=== PATIENT | female | born 1950 | race Caucasian/White ===

== ENCOUNTER 2020-04-11 15:22 | Outpatient (REF) | payer OTHER, SELFPAY ==
[2020-04-11 16:55] LABS: SARS COV2 PCR INHOUSE NEGATIVE (Negative)
== END 2020-04-11 15:23 | disposition home or self-care (01) ==
LOC: HO.LAB 15:22
PROVIDERS: PCP Internal Medicine; Visit Provider Internal Medicine
DX: Z20.828 Contact with and (suspected) exposure to other viral communicable diseases (principal)
CPT/HCPCS: 87635

== ENCOUNTER 2020-04-14 07:56 | Outpatient (REF) | payer OTHER, SELFPAY ==
[2020-04-14 08:25] LABS: COVID-19 Test Negative (Negative)
== END 2020-04-14 07:57 | disposition home or self-care (01) ==
LOC: HO.LAB 07:56
PROVIDERS: Visit Provider Internal Medicine
DX: Z20.828 Contact with and (suspected) exposure to other viral communicable diseases (principal)
CPT/HCPCS: 87635

== ENCOUNTER 2020-05-15 06:41 | Outpatient (REF) | payer OTHER, SELFPAY ==
[2020-05-15 07:09] LABS: COVID-19 Test Positive (Negative)
== END 2020-05-15 06:42 | disposition home or self-care (01) ==
LOC: HO.EMPCOV 06:41
PROVIDERS: Visit Provider Internal Medicine
DX: Z20.828 Contact with and (suspected) exposure to other viral communicable diseases (principal)
CPT/HCPCS: 87635; C9803

== ENCOUNTER 2020-05-23 17:56 | Inpatient (IN) | payer OTHER, SELFPAY ==
[2020-05-23 18:00] VITALS: PULSE 74; RESP 16; TEMP 37.2; O2SAT 90; BMI 31.0
--- NOTE | 2020-05-23 19:00 | ED_ITS ---
HPI - General Adult General Chief complaint: Upper Respiratory Symptoms Stated complaint: SOB,WEAKNESS,COVID + Time Seen by Provider: 05/23/20 18:29 History of Present Illness HPI narrative: 69-year-old female who presents to the emergency department for evaluation of increasing chest pain and shortness of breath. The patient was diagnosed with COVID 19 on May 15, 2020. 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 She states that 1 day before her test she got sick with fever and chills. Since being COVID positive she has stay home and isolated herself. She states the last 3-4 days her symptoms have gotten worse. She states that she has had fever, chills and a worsening cough which is nonproductive. She states she is feeling incredibly weak and fatigued. She has lost her appetite. She has developed left-sided chest pain which desc ribed as sharp pain which is worse with breathing. She has also developed increased shortness of breath increased dyspnea on exertion. She did see her doctor 3 days prior and was started on Zithromax. She states that after her 1st dose she did have 1 day of diarrhea but then this resolved. The patient was concerned that her symptoms were getting worse so she came to the emergency department for evaluation. Related Data Home Medications Medication Instructions Recorded Confirmed amlodipine 1 tab PO DAILY 05/23/20 05/23/20 azithromycin 1 dose pk PO DIRECTED 05/23/20 05/23/20 hydrochlorothiazide 1 tab PO DAILY 05/23/20 05/23/20 lisinopril 1 tab PO DAILY 05/23/20 05/23/20 Allergies Allergy/AdvReac Type Severity Reaction Status Date / Time No Known Allergies Allergy Verified 05/23/20 18:03 Review of Systems Review of Systems: Yes all other systems are reviewed and are negative Constitutional: Constitutional: Reports as per HPI Eyes: Eyes: Reports as per HPI ENT: Reports as per HPI Cardiovascular: Cardiovascular: Reports as per HPI Respiratory: Respiratory: Reports as per HPI Gastrointestinal: Gastrointestinal: Reports as per HPI Genitourinary: Genitourinary: Reports as per HPI Musculoskeletal: Musculoskeletal: Reports as per HPI Integumentary/Breasts: Skin/Breast: Reports as per HPI Neurologic: Reports as per HPI and Reports Abnormal speech present Psychiatric: Psychiatric: Reports as per HPI Allergic/Immunologic: Allergic/Immunologic: Reports as per HPI [facility] Past Medical History [facility] Narrative: Patient has a history of hypertension only. She denies tobacc o, alcohol or drug use. Medical History HTN (hypertension) Social History Social History Alcohol intake: never Smoked in Last 30 Days: No Use of substances other than those prescribed or required for medical reasons: No Advance Directives: No Advance Directives Information Provided: Yes Physical Exam Vital Signs: Vital Signs: Last Vital Signs Temp 98.7 F 05/24/20 00:03 Pulse 74 05/24/20 00:03 Resp 16 05/24/20 00:03 BP 110/75 05/24/20 00:03 Pulse Ox 96 05/23/20 21:55 Body Mass Index 31.0 Const: General: cooperative, no acute distress, alert and awake Nutritional Appearance: overweight Orientation/consciousness: oriented to person and oriented to place Limitations: no limitations HENMT: Head: Yes normal to inspection, Yes normocephalic and Yes atraumatic Ears: external ears normal General nose exam: Normal external nose present Face and sinus: Yes normal facial exam Mouth: Normal oral and palatal mucosa present Throat: Yes posterior oropharynx normal Eyes: General: appearance normal, both eyes and all related structures Periorbital: periorbital findings normal Eyelids: Yes eyelids normal Conjunctivae: conjunctivae normal Sclerae: sclerae normal Corneas: corneas normal Pupils: Equal, round and reactive pupils present Direct Ophth almoscopy: normal light reflex Neck: Neck: Yes normal visual inspection and Yes supple Lymphatic: no lymphadenopathy noted Chest: Chest palpation & inspection: normal inspection of the chest and normal palpation of entire chest wall Resp: Effort & Inspection: normal respiratory effort, abnormal respiratory pattern, no audible wheezes and no respiratory distress Auscultation: clear to auscultation bilaterally, crackles (Right and left base), rales (Diffuse), no rhonchi and no wheezes Cardio: Rate: regular rate Rhythm: regular rhythm Heart sounds: S1 normal heart sound present, S2 normal heart sound present and no murmurs GI: Inspection: No distended Palpation (GI): Soft to palpation, nontender, no guarding and No hepatosplenomegaly present Auscultation: normal bowel sounds : General: Yes no CVA tenderness Back/Spine/Pelvis: Back: no CVA tenderness Skin: General skin exam: no rashes or lesions noted Lesions: no lesions Rashes: no rashes Wounds: no wounds Neuro: General: oriented to person and oriented to place Cranial nerves: Yes CN's II-XII intact bilaterally and Yes Equal, round and reactive pupils present Cognition (Neuro): normal cognition Speech: Abnormal speech present Motor exam (neuro): 5/5 motor strength present throughout Extrem: General: Yes normal to inspection, Yes full ROM, Yes no pedal edema and Yes no calf tenderness Psych: Appearance: grossly normal Mental Status: mental status grossly normal Speech and movement: Clear speech present Affect: normal affect Thought process: Normal thought process present Course Course Course Narrative: 69-year-old female with a history of hypertension who was diagnosed with COVID-19 on May 15, 2020 who presents to the emergency department with worsening symptoms including fever, chills, shortness of breath, dyspnea on exertion and left-sided pleuritic chest pain. On presentation the patient's temperature was 99? F with a respiratory rate of 16 and O2 saturation of 88% on room air. The patient was placed on 4 L of oxygen via nasal cannula and her O2 saturation came up to 96%. The patient's hypoxia is concerning. I did order a COVID-19 workup on this patient. 2327: The patient's laboratory evaluation revealed a normal CBC. The patient did have an elevated D-dimer, elevated ferritin and elevated CRP. Patient's procalcitonin was normal. CT scan and pulmonary embolism protocol revealed no filling defect but patient does have bilateral interstitial infiltrates consistent with an infectious process consistent with the COVID pneumonia. I will present the patient to the covering hospitalist for admission for further management of her COVID pneumonia and her hypoxia. 0035 : I did discuss the patient's presentation with the covering hospitalist. He agreed to admit the patient to the medical floor. after our discussion, I ordered the following: Respiratory panel, Solu-Medrol 40 mg IV, albuterol inhaler 4 puffs, Rocephin 1 g IV, doxycycline 100 mg IV. Medical Decision Making Lab Data Result diagrams: 05/23/20 19:16 05/23/20 19:52 Labs: Lab Results 05/23/20 05/23/20 05/23/20 Range/Units 19:16 19:16 19:16 WBC 6.1 (4.8-10.8) X10*3/uL RBC 4.45 (4.20-5.50) X10*6/uL Hgb 13.2 (12.0-16.0) g/dl Hct 39.1 (37-47) % MCV 87.9 (80-98) fL MCH 29.7 (27.0-33.0) pg MCHC 33.8 (31.0-35.0) g/dl RDW 13.3 (11.0-16.0) % Plt Count 231 (160-400) X10*3/uL MPV 9.9 (9.4-12.3) fL Immature Gran % (Auto) 0.3 (0.0-0.4) % Neut % (Auto) 75.5 H (45-73) % Lymph % (Auto) 16.2 L (20-40) % Edmonson % (Auto) 7.8 (2-11) % Eos % (Auto) 0.0 (0-4) % Baso % (Auto) 0.2 (0-2) % Lymph # (Auto) 1.0 L (1.2-4.9) X10*3/uL Edmonson # (Auto) 0.5 (0.1-1.2) X10*3/uL Eos # (Auto) 0.0 (0.0-0.4) X10*3/uL Baso # (Auto) 0.0 (0.0-0.2) X10*3/uL Abs Immat Gran (auto) 0.02 (0.00-0.03) X10*3/uL Absolute Neuts (auto) 4.6 (2.0-8.3) X10*3/uL Absolute Nucleated RBC 0.000 (0.0-0.012) X10*3/uL Nucleated RBC % (auto) 0.0 (0.0-0.2) /100WBC D-Dimer 477 NG/ML Sodium Cancelled Potassium Cancelled Chloride Cancelled Carbon Dioxide Cancelled Anion Gap Cancelled BUN Cancelled Creatinine Cancelled Estim Creat Clear Calc Cancelled Estimated GFR Cancelled Random Glucose Cancelled Calcium Cancelled Phosphorus Magnesium Ferritin Cancelled Total Bilirubin Cancelled Direct Bilirubin Cancelled AST Cancelled ALT Cancelled Alkaline Phosphatase Cancelled Lactate Dehydrogenase Total Creatine Kinase Troponin I High Sens (<3.5-17.0) ng/L C-Reactive Protein Total Protein Cancelled Albumin Cancelled Lipase Cancelled Procalcitonin 05/23/20 05/23/20 05/23/20 Range/Units 19:16 19:16 19:16 WBC (4.8-10.8) X10*3/uL RBC (4.20-5.50) X10*6/uL Hgb (12.0-16.0) g/dl Hct (37-47) % MCV (80-98) fL MCH (27.0-33.0) pg MCHC (31.0-35.0) g/dl RDW (11.0-16.0) % Plt Count (160-400) X10*3/uL MPV (9.4-12.3) fL Immature Gran % (Auto) (0.0-0.4) % Neut % (Auto) (45-73) % Lymph % (Auto) (20-40) % Edmonson % (Auto) (2-11) % Eos % (Auto) (0-4) % Baso % (Auto) (0-2) % Lymph # (Auto) (1.2-4.9) X10*3/uL Edmonson # (Auto) (0.1-1.2) X10*3/uL Eos # (Auto) (0.0-0.4) X10*3/uL Baso # (Auto) (0.0-0.2) X10*3/uL Abs Immat Gran (auto) (0.00-0.03) X10*3/uL Absolute Neuts (auto) (2.0-8.3) X10*3/uL Absolute Nucleated RBC (0.0-0.012) X10*3/uL Nucleated RBC % (auto) (0.0-0.2) /100WBC D-Dimer NG/ML Sodium Potassium Chloride Carbon Dioxide Anion Gap BUN Creatinine Estim Creat Clear Calc Estimated GFR Random Glucose Calcium Phosphorus Cancelled Magnesium Cancelled Ferritin Total Bilirubin Direct Bilirubin AST ALT Alkaline Phosphatase Lactate Dehydrogenase Cancelled Total Creatine Kinase Cancelled Troponin I High Sens 5.9 (<3.5-17.0) ng/L C-Reactive Protein Cancelled Total Protein Albumin Lipase Procalcitonin Cancelled 05/23/20 05/23/20 Range/Units 19:52 19:52 WBC (4.8-10.8) X10*3/uL RBC (4.20-5.50) X10*6/uL Hgb (12.0-16.0) g/dl Hct (37-47) % MCV (80-98) fL MCH (27.0-33.0) pg MCHC (31.0-35.0) g/dl RDW (11.0-16.0) % Plt Count (160-400) X10*3/uL MPV (9.4-12.3) fL Immature Gran % (Auto) (0.0-0.4) % Neut % (Auto) (45-73) % Lymph % (Auto) (20-40) % Edmonson % (Auto) (2-11) % Eos % (Auto) (0-4) % Baso % (Auto) (0-2) % Lymph # (Auto) (1.2-4.9) X10*3/uL Edmonson # (Auto) (0.1-1.2) X10*3/uL Eos # (Auto) (0.0-0.4) X10*3/uL Baso # (Auto) (0.0-0.2) X10*3/uL Abs Immat Gran (auto) (0.00-0.03) X10*3/uL Absolute Neuts (auto) (2.0-8.3) X10*3/uL Absolute Nucleated RBC (0.0-0.012) X10*3/uL Nucleated RBC % (auto) (0.0-0.2) /100WBC D-Dimer NG/ML Sodium 133 L Potassium 3.9 Chloride 97 Carbon Dioxide 23 Anion Gap 17 BUN 16 Creatinine 1.03 Estim Creat Clear Calc 64.2 Estimated GFR 53 Random Glucose 107 Calcium 8.4 Phosphorus 2.7 Magnesium 1.9 Ferritin 403 H Total Bilirubin 0.6 Direct Bilirubin 0.2 AST 29 ALT 19 Alkaline Phosphatase 64 Lactate Dehydrogenase 272 H Total Creatine Kinase 76 Troponin I High Sens (<3.5-17.0) ng/L C-Reactive Protein 2.51 H Total Protein 6.6 Albumin 3.7 Lipase Procalcitonin 0.11 Discharge Plan Discharge Clinical Impression: Pneumonia due to COVID-19 virus, Hypoxia Patient Disposition: Admitted As Inpatient Prescriptions: No Action azithromycin 250 mg tablet 1 dose pk PO DIRECTED RF: 0 amlodipine 5 mg tablet 1 tab PO DAILY RF: 0 lisinopril 5 mg tablet 1 tab PO DAILY RF: 0 hydrochlorothiazide 12.5 mg tablet 1 tab PO DAILY RF: 0
[2020-05-23 19:23] VITALS: O2SAT 96
[2020-05-23 19:25] LABS: Basophils Percent Auto 0.2 % (0-2); Hematocrit 39.1 % (37-47); Hemoglobin 13.2 g/dl (12.0-16.0); Imm Gran Abs Auto 0.02 X10*3/uL (0.00-0.03); Imm Gran Pct Auto 0.3 % (0.0-0.4); Lymphocytes Percent Auto 16.2 % (20-40); MANUAL DIFF FLAG NO; Mean Corpuscular HGB Conc 33.8 g/dl (31.0-35.0); Mean Corpuscular Hemoglobin 29.7 pg (27.0-33.0); Mean Corpuscular Volume 87.9 fL (80-98); Mean Platelet Volume 9.9 fL (9.4-12.3); Monocytes Absolute Auto 0.5 X10*3/uL (0.1-1.2); Monocytes Percent Auto 7.8 % (2-11); Neutrophils Absolute Auto 4.6 X10*3/uL (2.0-8.3); Neutrophils Percent Auto 75.5 % (45-73); Platelet Count 231 X10*3/uL (160-400); Red Blood Count 4.45 X10*6/uL (4.20-5.50); Red Cell Distribution Width 13.3 % (11.0-16.0); White Blood Count 6.1 X10*3/uL (4.8-10.8)
[2020-05-23 19:33] LABS: D Dimer 477 NG/ML
[2020-05-23 19:49] LABS: Troponin-I High Sensitivity 5.9 ng/L (<3.5-17.0)
[2020-05-23 19:54] VITALS: BP 114/57; PULSE 55; RESP 16; TEMP 37.4; O2SAT 96
[2020-05-23 20:00] VITALS: BP 116/64; PULSE 59; RESP 16; TEMP 37.6; O2SAT 95
--- NOTE | 2020-05-23 20:03 | CT_ITS ---
EXAMINATION: CT ANGIOGRAM OF THE CHEST WITH AND WITHOUT CONTRAST (CT PULMONARY ANGIOGRAM FOR PE) CLINICAL INFORMATION: COVID-19 positive, elevated D-dimer, rule out PE COMPARISON: Chest x-ray 05/06/2017 TECHNIQUE: Prior to contrast administration, noncontrast localization images were obtained. Subsequently, multidetector volumetric imaging was performed from the thoracic inlet to below the diaphragms following the administration of 71 mL Omnipaque 350 intravenous contrast. No contrast reaction reported Sagittal, coronal, and MIP oblique sagittal reformatted images were obtained on the CT workstation, uploaded to PACS, and reviewed. This CT examination was performed using dose optimization techniques as appropriate, variously including the following: *Automated exposure control *Adjustment of mA and/or kV according to patient size (this includes techniques or standardized protocols for targeted exams where dose is matched to indication/reason for exam; i.e. extremities or head) *Use of iterative reconstruction technique Total exam dose-length product 376 mGy-cm FINDINGS: QUALITY OF STUDY/CONTRAST BOLUS: Satisfactory. PULMONARY ARTERIES: No evidence of filling defects to suggest central or segmental pulmonary emboli. THORACIC AORTA: Ascending aorta is dilated measuring 4.1 cm. LUNG: Multifocal prominent foci of airspace and groundglass opacities in bilateral hemithoraces, with peripheral distribution predominance, more prominent on the right side. This includes prominent airspace and ground glass opacity in the right lower lung. Multifocal opacities in the perihilar region as well. Findings compatible with sequela of Covid 19 disease. PLEURA: No pleural effusion or pneumothorax. MEDIASTINUM: Normal heart size. No pericardial effusion. Suspected right hilar lymphadenopathy, including a 1.4 cm enlarged lymph node. Subcentimeter mediastinal lymph nodes. No evidence of septal bowing or right heart strain. CHEST WALL/AXILLA: No axillary or internal mammary lymphadenopathy. OSSEOUS STRUCTURES: No acute or suspicious osseous abnormality. UPPER ABDOMEN: Unremarkable. Small hiatal hernia. No reflux of contrast into the hepatic veins to suggest elevated right heart pressures. CT/CT angio chest PE protocol IMPRESSION: 1. No evidence of filling defects to suggest pulmonary embolus. 2. Extensive multifocal airspace and ground glass opacities in bilateral hemithoraces. The findings are compatible with infectious/inflammatory process, correlating with the clinical history of Covid positive disease. 3. Dilated ascending aorta measuring 4.1 cm. 4. Right hilar lymphadenopathy. 5. Small hiatal hernia. VTE: negative
[2020-05-23 20:28] LABS: Alanine Aminotransferase 19 U/L (0-31); Albumin Level 3.7 g/dL (3.5-5.0); Alkaline Phosphatase 64 U/L (39-117); Anion Gap 17 (12-20); Aspartate Amino Transferase 29 U/L (5-31); Bilirubin Direct 0.2 mg/dL (0.0-0.5); Bilirubin Total 0.6 mg/dL (0.0-1.0); Blood Urea Nitrogen 16 mg/dL (9-16); C Reactive Protein 2.51 mg/dL (< or = 0.50); Calcium 8.4 mg/dL (8.4-10.2); Carbon Dioxide 23 mmol/L (22-29); Chloride 97 mmol/L (96-108); Creatinine Clr Calc Pharmacy 64.2; Estimated Glomerular Filt Rate 53; Glucose Random 107 mg/dL (60-115); Magnesium 1.9 mg/dL (1.6-2.6); Phosphorus 2.7 mg/dL (2.7-4.5); Potassium 3.9 mmol/l (3.3-5.1); Sodium 133 mmol/L (135-145); Total Protein 6.6 g/dL (6.5-8.0)
[2020-05-23 20:29] VITALS: PULSE 88; O2SAT 89
[2020-05-23 20:48] LABS: Ferritin 403 ng/mL (10-250)
[2020-05-23 20:49] LABS: Procalcitonin 0.11 ng/mL
[2020-05-23 21:25] LABS: Lactate Dehydrogenase 272 U/L (122-220)
--- NOTE | 2020-05-23 21:42 | PC.NURSE ---
Pt pending CT, reports feeling better since arrival.
[2020-05-23 21:55] VITALS: BP 117/51; PULSE 52; RESP 16; TEMP 37.1; O2SAT 96
[2020-05-23] MEDS: iohexoL 350 MG/ML 100 ML INFUS..BTL IV (22:20)
[2020-05-24] VITALS (10 sets, daily range): BP systolic 104–125; BP diastolic 50–75; PULSE 48–74; RESP 15–31; TEMP 35.8–37.7; O2SAT 91–97; BMI 31.0
[2020-05-24] MEDS: cefTRIAXone sodium 1 GM in 0.9 % Sodium Chloride 50 ML IV (01:53)
[2020-05-24] MEDS: Albuterol Sulfate 90 MCG 8 GM INHALER 4 PUFF INHALE (01:54)
[2020-05-24] MEDS: Doxycycline Hyclate 100 MG in 0.9 % Sodium Chloride 250 ML 166.67 MG IV (02:48)
--- NOTE | 2020-05-24 02:55 | PM.IMHP ---
History of Present Illness Date of Service: 05/24/20 Chief Complaint: SOB 69 y/o female with PMHX of HTN who presented from home due to worsening SOB. Per history provided by the patient for the past 9 days has been having worsening symptoms of difficulty breathing at rest associated with a dry cough, intermittent episodes of fever/chills, chest pain and one episode of diarrhea. Patient reports was diagnosed with covid + infection on 05/15/20. On presentation to the ED vitals were found to be stable, no episodes of fever. Oxygen on room air of 88-89% which improved to 92-96% on 4 liters Nasal cannula. Na of 133, Ferritin 403, LDH of 272 and CRP of 2.51. CTA done which is negative for PE but positive for bilateral ground glass opacities and ascending aortic aneurysm of 4.1 cm. One dose of solumedrol IV, albuterol, Rocephin and doxy given per ED. Decision for admission given. Patient seen and examined at the bedside, laying down in bed in no acute distress. ROS as above otherwise negative. Physical exam unremarkable. PMHX: HTN PSx: none Toxic habits: No hx of alcohol abuse, smoking or IVDA Review of Systems Cardiovascular: Cardiovascular: Reports dyspnea and Reports other (chest pain on inspiration ) Respiratory: Respiratory: Reports cough and Reports dyspnea Gastrointestinal: Gastrointestinal: Reports diarrhea Neurologic: Reports as per HPI and Reports Abnormal speech present [facility] Medical History HTN (hypertension) Functional capacity: independent ambulation Social History Alcohol intake: never Smoked in Last 30 Days: No Use of substances other than those prescribed or required for medical reasons: No Advance Directives: No Advance Directives Information Provided: Yes Meds Allergies Allergy/AdvReac Type Severity Reaction Status Date / Time No Known Allergies Allergy Verified 05/23/20 18:03 Home Medications Medication Instructions Recorded Confirmed Type amlodipine 1 tab PO DAILY 05/23/20 05/23/20 History azithromycin 1 dose pk PO DIRECTED 05/23/20 05/23/20 History hydrochlorothiazide 1 tab PO DAILY 05/23/20 05/23/20 History lisinopril 1 tab PO DAILY 05/23/20 05/23/20 History Physical Exam Vital Signs and Narrative: Vital Signs: Last Vital Signs Temp 99.4 F 05/24/20 02:00 Pulse 58 05/24/20 02:00 Resp 16 05/24/20 02:00 BP 109/61 05/24/20 02:00 Pulse Ox 97 05/24/20 02:00 Body Mass Index 31.0 Const: General: cooperative, comfortable and no acute distress Orientation/consciousness: oriented to person, oriented to place and oriented to time HENMT: Head: Yes normal to inspection Eyes: General: appearance normal, both eyes and all related structures Neck: Yes normal visual inspection Chest: Chest palpation & inspection: normal inspection of the chest Resp: Effort & Inspection: normal respiratory effort Auscultation: clear to auscultation bilaterally Cardio: Jugular venous distension: no JVD Rate: regular rate Rhythm: regular rhythm Heart sounds: S1 normal heart sound present and S2 normal heart sound present GI: Inspection: Yes normal to inspection Skin: General skin exam: no rashes or lesions noted Neuro: General: oriented to person, oriented to place and oriented to time Cognition (Neuro): normal cognition Speech: Abnormal speech present Results Labs CBC and Chem 7: 05/23/20 19:16 05/23/20 19:52 Labs: Laboratory Results - last 24 hr 05/23/20 05/23/20 05/23/20 19:16 19:16 19:16 MCV 87.9 MCH 29.7 MCHC 33.8 RDW 13.3 Plt Count 231 MPV 9.9 Immature Gran % (Auto) 0.3 Neut % (Auto) 75.5 H Lymph % (Auto) 16.2 L Alexander % (Auto) 7.8 Eos % (Auto) 0.0 Baso % (Auto) 0.2 Lymph # (Auto) 1.0 L Alexander # (Auto) 0.5 Eos # (Auto) 0.0 Baso # (Auto) 0.0 Abs Immat Gran (auto) 0.02 Absolute Neuts (auto) 4.6 Absolute Nucleated RBC 0.000 Nucleated RBC % (auto) 0.0 D-Dimer 477 Anion Gap Cancelled Estim Creat Clear Calc Cancelled Estimated GFR Cancelled Random Glucose Cancelled Calcium Cancelled Phosphorus Magnesium Ferritin Cancelled Total Bilirubin Cancelled Direct Bilirubin Cancelled AST Cancelled ALT Cancelled Alkaline Phosphatase Cancelled Lactate Dehydrogenase Total Creatine Kinase Troponin I High Sens C-Reactive Protein Total Protein Cancelled Albumin Cancelled Lipase Cancelled Procalcitonin 05/23/20 05/23/20 05/23/20 19:16 19:16 19:16 MCV MCH MCHC RDW Plt Count MPV Immature Gran % (Auto) Neut % (Auto) Lymph % (Auto) Alexander % (Auto) Eos % (Auto) Baso % (Auto) Lymph # (Auto) Alexander # (Auto) Eos # (Auto) Baso # (Auto) Abs Immat Gran (auto) Absolute Neuts (auto) Absolute Nucleated RBC Nucleated RBC % (auto) D-Dimer Anion Gap Estim Creat Clear Calc Estimated GFR Random Glucose Calcium Phosphorus Cancelled Magnesium Cancelled Ferritin Total Bilirubin Direct Bilirubin AST ALT Alkaline Phosphatase Lactate Dehydrogenase Cancelled Total Creatine Kinase Cancelled Troponin I High Sens 5.9 C-Reactive Protein Cancelled Total Protein Albumin Lipase Procalcitonin Cancelled 05/23/20 05/23/20 19:52 19:52 MCV MCH MCHC RDW Plt Count MPV Immature Gran % (Auto) Neut % (Auto) Lymph % (Auto) Alexander % (Auto) Eos % (Auto) Baso % (Auto) Lymph # (Auto) Alexander # (Auto) Eos # (Auto) Baso # (Auto) Abs Immat Gran (auto) Absolute Neuts (auto) Absolute Nucleated RBC Nucleated RBC % (auto) D-Dimer Anion Gap 17 Estim Creat Clear Calc 64.2 Estimated GFR 53 Random Glucose 107 Calcium 8.4 Phosphorus 2.7 Magnesium 1.9 Ferritin 403 H Total Bilirubin 0.6 Direct Bilirubin 0.2 AST 29 ALT 19 Alkaline Phosphatase 64 Lactate Dehydrogenase 272 H Total Creatine Kinase 76 Troponin I High Sens C-Reactive Protein 2.51 H Total Protein 6.6 Albumin 3.7 Lipase Procalcitonin 0.11 Imaging Radiologist's Impressions: Impressions Chest CTA 05/23/20 20:03 IMPRESSION: 1. No evidence of filling defects to suggest pulmonary embolus. 2. Extensive multifocal airspace and ground glass opacities in bilateral hemithoraces. The findings are compatible with infectious/inflammatory process, correlating with the clinical history of Covid positive disease. 3. Dilated ascending aorta measuring 4.1 cm. 4. Right hilar lymphadenopathy. 5. Small hiatal hernia. VTE: negative Assessment and Plan (1) Pneumonia due to COVID-19 virus: Status: Acute Continue with Solumedrol IV as ordered and taper as tolerated Continue with Rocephin and doxy for gram neg and atypical PNA coverage Follow up Respiratory panel Follow up Bcx Continue with O2 supplemented and taper off as tolerated Isolation [facility] [place] Infectious disease consult in the am (2) Hypoxia: Status: Acute plan as above (3) HTN (hypertension): Status: Acute continue with home BP meds
[2020-05-24 03:01] LABS: Adenovirus PCR Not Detected (Not Detect.); Bordetella parapertussis PCR Not Detected (Not Detect.); Bordetella pertussis PCR Not Detected (Not Detect.); Chlamydia pneumoniae PCR Not Detected (Not Detect.); Coronavirus 229E PCR Not Detected (Not Detect.); Coronavirus HKU1 PCR Not Detected (Not Detect.); Coronavirus NL63 PCR Not Detected (Not Detect.); Coronavirus OC43 PCR Not Detected (Not Detect.); Human metapneumovirus PCR Not Detected (Not Detect.); Influenza A PCR Not Detected (Not Detect.); Influenza B PCR Not Detected (Not Detect.); Mycoplasma pneumoniae PCR Not Detected (Not Detect.); Parainfluenza 1 PCR Not Detected (Not Detect.); Parainfluenza 2 PCR Not Detected (Not Detect.); Parainfluenza 3 PCR Not Detected (Not Detect.); Parainfluenza 4 PCR Not Detected (Not Detect.); RSV PCR Not Detected (Not Detect.); Rhino/Enterovirus PCR Not Detected (Not Detect.)
[2020-05-24] MEDS: Heparin Sodium,Porcine 5,000 UNIT/ML VIAL 5000 UNIT SUBCUT ×3 (04:28→18:08)
[2020-05-24 06:49] LABS: Anion Gap 14 (12-20); Blood Urea Nitrogen 15 mg/dL (9-16); Calcium 8.3 mg/dL (8.4-10.2); Carbon Dioxide 25 mmol/L (22-29); Chloride 99 mmol/L (96-108); Creatinine Clr Calc Pharmacy 66.8; Estimated Glomerular Filt Rate 56; Glucose Random 116 mg/dL (60-115); Potassium 4.2 mmol/l (3.3-5.1); Sodium 134 mmol/L (135-145)
[2020-05-24 06:50] LABS: Basophils Percent Auto 0.2 % (0-2); Hematocrit 39.7 % (37-47); Hemoglobin 12.8 g/dl (12.0-16.0); Imm Gran Abs Auto 0.02 X10*3/uL (0.00-0.03); Imm Gran Pct Auto 0.4 % (0.0-0.4); Lymphocytes Absolute Auto 0.6 X10*3/uL (1.2-4.9); Lymphocytes Percent Auto 12.7 % (20-40); MANUAL DIFF FLAG SCAN; Mean Corpuscular HGB Conc 32.2 g/dl (31.0-35.0); Mean Corpuscular Hemoglobin 28.7 pg (27.0-33.0); Mean Platelet Volume 10.4 fL (9.4-12.3); Monocytes Absolute Auto 0.1 X10*3/uL (0.1-1.2); Monocytes Percent Auto 2.9 % (2-11); Neutrophils Percent Auto 83.8 % (45-73); Platelet Count 263 X10*3/uL (160-400); Red Blood Count 4.46 X10*6/uL (4.20-5.50); Red Cell Distribution Width 13.5 % (11.0-16.0); SCAN SMEAR FLAG 1; White Blood Count 4.8 X10*3/uL (4.8-10.8)
[2020-05-24 07:25] LABS: SLIDE REVIEW VERIFIED
[2020-05-24] MEDS: 0.9 % Sodium Chloride Flush 3 ML SYRINGE IVFLUSH ×2 (08:27→16:07)
[2020-05-24] MEDS: lisinopriL 5 MG TABLET PO (08:27)
[2020-05-24] MEDS: hydroCHLOROthiazide 12.5 MG TABLET PO (08:28)
[2020-05-24] MEDS: amLODIPine Besylate 5 MG TABLET PO (08:28)
[2020-05-24 08:58] LABS: SARS-CoV-2 PCR Detected (Not Detect.)
--- NOTE | 2020-05-24 09:31 | MHC.CM.PN ---
pt lives alone in her home. she reports that she is independent in her care. 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 pt has family that live in the area and can help her if she needs it. her son will provide transportation at dc. pt denies the need for vna at dc. dc plan is home no svcs. cm to cont. to follow.
--- NOTE | 2020-05-24 11:29 | HO.PM.IMPN ---
Subjective Subjective Date of Service: 05/24/20 Interval History: Patient seen and examined at bedside, patient was reporting shortness of breath and weakness Cardiovascular Cardiovascular: Reports dyspnea and Reports other (chest pain on inspiration ) Respiratory Respiratory: Reports cough and Reports dyspnea Gastrointestinal Gastrointestinal: Reports diarrhea Neurologic Neurologic: Reports as per HPI and Reports Abnormal speech present Physical Exam Vital Signs: Vital Signs: Last Vital Signs Temp 96.5 F L 05/24/20 08:48 Pulse 64 05/24/20 08:48 Resp 17 05/24/20 08:48 BP 125/59 L 05/24/20 08:48 Pulse Ox 93 05/24/20 08:48 Body Mass Index 31.0 Const: General: cooperative, comfortable and no acute distress Orientation/consciousness: oriented to person, oriented to place and oriented to time HENMT: Head: Yes normal to inspection Eyes: General: appearance normal, both eyes and all related structures Neck: Neck: Yes normal visual inspection Chest: Chest palpation & inspection: normal inspection of the chest Resp: Effort & Inspection: normal respiratory effort Auscultation: clear to auscultation bilaterally Cardio: Jugular venous distension: no JVD Rate: regular rate Rhythm: regular rhythm Heart sounds: S1 normal heart sound present and S2 normal heart sound present GI: Inspection: Yes normal to inspection Skin: General skin exam: no rashes or lesions noted Neuro: General: oriented to person, oriented to place and oriented to time Cognition (Neuro): normal cognition Speech: Abnormal speech present Objective Data Current Medications Generic Name Dose Route Start Last Admin Trade Name Freq PRN Reason Stop Dose Admin Albuterol Sulfate 1.25 mg 05/24/20 02:27 Albuterol Sulfate (0.042%) 1.25 Mg/3 Ml Vial.Neb INHALE RQ4H PRN Shortness of Breath Amlodipine Besylate 5 mg 05/24/20 09:00 05/24/20 08:28 Amlodipine Besylate 5 Mg Tablet PO 5 mg DAILY JOSE LUIS Administration Protocol Heparin Sodium (Porcine) 5,000 unit 05/24/20 02:27 05/24/20 09:20 Heparin Sodium,Porcine 5,000 Unit/Ml Vial SUBCUT 5,000 unit Q8H JOSE LUIS Administration Hydrochlorothiazide 12.5 mg 05/24/20 09:00 05/24/20 08:28 Hydrochlorothiazide 12.5 Mg Tablet PO 12.5 mg DAILY JOSE LUIS Administration Protocol Ceftriaxone Sodium 1 gm/ 50 mls @ 100 mls/hr 05/25/20 06:00 Sodium Chloride IV Q24H COUNT INCLUDES THE [facility] Doxycycline Hyclate 100 mg/ 250 mls @ 166.67 mls/hr 05/25/20 06:00 Sodium Chloride IV Q24H COUNT INCLUDES THE [facility] Lisinopril 5 mg 05/24/20 09:00 05/24/20 08:27 Lisinopril 5 Mg Tablet PO 5 mg DAILY COUNT INCLUDES THE [facility] Administration Protocol Methylprednisolone Sodium Succinate 40 mg 05/25/20 06:00 Methylprednisolone Sod Succ/Pf 40 Mg/Ml Vial IVPUSH Q24H COUNT INCLUDES THE [facility] Pharmacy Consult 1 each 05/24/20 00:39 Consult Rx Perform Med Rec MISCELLANE ONCE PRN Consult order Sodium Chloride 3 ml 05/24/20 08:00 05/24/20 08:27 0.9 % Sodium Chloride Flush 3 Ml Syringe IVFLUSH 3 ml QSHIFT COUNT INCLUDES THE [facility] Administration Labs CBC & Chem 7: 05/24/20 05:41 05/24/20 05:41 Assessment and Plan (1) Pneumonia due to COVID-19 virus: Status: Acute (2) Hypoxia: Status: Acute (3) HTN (hypertension): Status: Acute Assessment and Plan: Covid pneumonia with acute hypoxic respiratory failure continue oxygen supplemental continue antibiotic continue dexamethasone supportive care follow-up cultures id consult hypertension continue amlodipine hydrochlorothiazide and lisinopril DVT prophylaxis heparin subcu
[2020-05-25] VITALS (7 sets, daily range): BP systolic 96–118; BP diastolic 43–72; PULSE 43–58; RESP 14–43; TEMP 36.3–37.1; O2SAT 92–97
[2020-05-25] MEDS: Heparin Sodium,Porcine 5,000 UNIT/ML VIAL 5000 UNIT SUBCUT ×3 (00:24→19:56)
[2020-05-25] MEDS: 0.9 % Sodium Chloride Flush 3 ML SYRINGE IVFLUSH ×3 (00:25→15:39)
[2020-05-25] MEDS: cefTRIAXone sodium 1 GM in 0.9 % Sodium Chloride 50 ML IV (05:19)
[2020-05-25] MEDS: Doxycycline Hyclate 100 MG in 0.9 % Sodium Chloride 250 ML 166.67 MG IV (06:22)
[2020-05-25] MEDS: dexAMETHasone sod phosphate 4 MG/ML VIAL 6 MG IVPUSH (08:37)
--- NOTE | 2020-05-25 10:49 | PC.NURSE ---
Morning bp medications (amlodipine, hydrochlorothiozide, and lisinopril) held per MD due to low BP and HR.
--- NOTE | 2020-05-25 14:16 | W.PM.IDCN ---
History of Present Illness Data of Consult Service Date: 05/25/20 Requesting physician: Chang Zavaleta Primary Care Provider: Unknown Physician HPI Reason for consult: shortness of breath She presents to hospital with chest discomfort and shortness of breath for 3 days She has fever and chills as well as left sided chest pain She was hypoxic and on 2 -4 L nasal cannula Review of Systems Cardiovascular: Cardiovascular: Reports dyspnea Respiratory: Respiratory: Reports dyspnea Neurologic: Reports as per HPI and Reports Abnormal speech present [facility], [facility] Past Medical History Medical History HTN (hypertension) Functional capacity: independent ambulation Social History Social History Household Members: Family Housing: Apartment Alcohol intake: never Smoking Status: Never smoker Second Hand Smoke Exposure: No service: No Current occupational status: employed Meds Allergies Allergy/AdvReac Type Severity Reaction Status Date / Time No Known Allergies Allergy Verified 05/23/20 18:03 Home Medications Medication Instructions Recorded Confirmed Type amlodipine 1 tab PO DAILY 05/23/20 05/23/20 History hydrochlorothiazide 1 tab PO DAILY 05/23/20 05/23/20 History lisinopril 1 tab PO DAILY 05/23/20 05/23/20 History Physical Exam Vital Signs: Vital Signs: Last Vital Signs Temp 97.4 F 05/25/20 08:15 Pulse 45 L 05/25/20 11:59 Resp 15 05/25/20 11:59 BP 115/56 L 05/25/20 11:59 Pulse Ox 93 05/25/20 11:59 Body Mass Index 31.0 Const: General: cooperative HENMT: Head: Yes normal to inspection Eyes: General: appearance normal, both eyes and all related structures Resp: Effort & Inspection: normal respiratory effort Cardio: Rate: regular rate Rhythm: regular rhythm Neuro: Speech: Abnormal speech present Assessment and Plan (1) Pneumonia due to COVID-19 virus: Status: Acute Finish 10 d total Dexamethasone Supportive oxygen (2) Hypoxia: Status: Resolved Results Labs CBC & Chem 7: 05/28/20 05:31 05/28/20 05:31
--- NOTE | 2020-05-25 15:52 | HO.PM.IMPN ---
Subjective Subjective Date of Service: 05/25/20 Interval History: Patient seen and examined at bedside, patient was reporting shortness of breath and weakness Cardiovascular Cardiovascular: Reports dyspnea and Reports other (chest pain on inspiration ) Respiratory Respiratory: Reports cough and Reports dyspnea Gastrointestinal Gastrointestinal: Reports diarrhea Neurologic Neurologic: Reports as per HPI and Reports Abnormal speech present Physical Exam Vital Signs: Vital Signs: Last Vital Signs Temp 97.4 F 05/25/20 08:15 Pulse 45 L 05/25/20 11:59 Resp 15 05/25/20 11:59 BP 115/56 L 05/25/20 11:59 Pulse Ox 93 05/25/20 11:59 Body Mass Index 31.0 Const: General: cooperative, comfortable and no acute distress Orientation/consciousness: oriented to person, oriented to place and oriented to time HENMT: Head: Yes normal to inspection Eyes: General: appearance normal, both eyes and all related structures Neck: Neck: Yes normal visual inspection Chest: Chest palpation & inspection: normal inspection of the chest Resp: Effort & Inspection: normal respiratory effort Auscultation: clear to auscultation bilaterally Cardio: Jugular venous distension: no JVD Rate: regular rate Rhythm: regular rhythm Heart sounds: S1 normal heart sound present and S2 normal heart sound present GI: Inspection: Yes normal to inspection Skin: General skin exam: no rashes or lesions noted Neuro: General: oriented to person, oriented to place and oriented to time Cognition (Neuro): normal cognition Speech: Abnormal speech present Objective Data Current Medications Generic Name Dose Route Start Last Admin Trade Name Freq PRN Reason Stop Dose Admin Albuterol Sulfate 1.25 mg 05/24/20 02:27 Albuterol Sulfate (0.042%) 1.25 Mg/3 Ml Vial.Neb INHALE RQ4H PRN Shortness of Breath Amlodipine Besylate 5 mg 05/24/20 09:00 05/25/20 08:35 Amlodipine Besylate 5 Mg Tablet PO Not Given DAILY JOSE LUIS Protocol Dexamethasone Sodium Phosphate 6 mg 05/25/20 09:00 05/25/20 08:37 Dexamethasone Sod Phosphate 4 Mg/Ml Vial IVPUSH 6 mg DAILY JOSE LUIS Administration Heparin Sodium (Porcine) 5,000 unit 05/24/20 02:27 05/25/20 12:37 Heparin Sodium,Porcine 5,000 Unit/Ml Vial SUBCUT 5,000 unit Q8H JOSE LUIS Administration Hydrochlorothiazide 12.5 mg 05/24/20 09:00 05/25/20 08:35 Hydrochlorothiazide 12.5 Mg Tablet PO Not Given DAILY [facility] Protocol Lisinopril 5 mg 05/24/20 09:00 05/25/20 08:35 Lisinopril 5 Mg Tablet PO Not Given DAILY [facility] Protocol Pharmacy Consult 1 each 05/24/20 00:39 Consult Rx Perform Med Rec MISCELLANE ONCE PRN Consult order Sodium Chloride 3 ml 05/24/20 08:00 05/25/20 15:39 0.9 % Sodium Chloride Flush 3 Ml Syringe IVFLUSH 3 ml QSHIFT [facility] Administration Labs CBC & Chem 7: 05/24/20 05:41 05/24/20 05:41 Assessment and Plan (1) Pneumonia due to COVID-19 virus: Status: Acute (2) Hypoxia: Status: Acute (3) HTN (hypertension): Status: Acute Assessment and Plan: Covid pneumonia with acute hypoxic respiratory failure continue oxygen supplemental wean down as tolerated continue antibiotic Seen by ID recommended continue dexamethasone supportive care follow-up cultures Hypertension continue amlodipine hydrochlorothiazide and lisinopril DVT prophylaxis heparin subcu
--- NOTE | 2020-05-25 16:24 | MHC.CM.PN ---
Patient remains in ICU. She is from home without services. She is positive for Covid and currently on oxygen. Continue to monitor for d/c needs.
--- NOTE | 2020-05-25 21:56 | PC.NURSE ---
Alert and oriented x 4, afebrile. Denied any chest pain, headache or dizziness. SB on tele. Lung sounds diminished, sats in the low to mid 90s at 2 LPM oxygen via nasal cannula. Resting comfortably in bed with no acute issues noted.
[2020-05-26] VITALS (8 sets, daily range): BP systolic 101–126; BP diastolic 43–60; PULSE 38–96; RESP 13–20; TEMP 36.1–36.3; O2SAT 92–95
[2020-05-26] MEDS: 0.9 % Sodium Chloride Flush 3 ML SYRINGE IVFLUSH ×4 (00:13→23:26)
[2020-05-26 02:33] LABS: LDL Cholesterol Direct 106 mg/dL (<100)
[2020-05-26] MEDS: Heparin Sodium,Porcine 5,000 UNIT/ML VIAL 5000 UNIT SUBCUT ×3 (02:45→19:26)
[2020-05-26] MEDS: hydroCHLOROthiazide 12.5 MG TABLET PO (09:35)
[2020-05-26] MEDS: dexAMETHasone sod phosphate 4 MG/ML VIAL 6 MG IVPUSH (09:38)
[2020-05-26] MEDS: lisinopriL 5 MG TABLET PO (10:33)
[2020-05-26] MEDS: amLODIPine Besylate 5 MG TABLET PO (10:34)
--- NOTE | 2020-05-26 11:14 | P.PNIM_ITS ---
Subjective Subjective Date of Service: 05/26/20 Interval History: Patient seen and examined at bedside, patient reported shortness of breath and weakness improving Cardiovascular Cardiovascular: Reports dyspnea and Reports other (chest pain on inspiration ) Respiratory Respiratory: Reports cough and Reports dyspnea Gastrointestinal Gastrointestinal: Reports diarrhea Neurologic Neurologic: Reports as per HPI and Reports Abnormal speech present Physical Exam Vital Signs: Vital Signs: Last Vital Signs Temp 96.9 F 05/26/20 10:37 Pulse 42 L 05/26/20 10:34 Resp 13 05/26/20 08:00 BP 117/52 L 05/26/20 10:34 Pulse Ox 93 05/26/20 08:00 Body Mass Index 31.0 Const: General: cooperative, comfortable and no acute distress Orientation/consciousness: oriented to person, oriented to place and oriented to time HENMT: Head: Yes normal to inspection Eyes: General: appearance normal, both eyes and all related structures Neck: Neck: Yes normal visual inspection Chest: Chest palpation & inspection: normal inspection of the chest Resp: Effort & Inspection: normal respiratory effort Auscultation: clear to auscultation bilaterally Cardio: Jugular venous distension: no JVD Rate: regular rate Rhythm: regular rhythm Heart sounds: S1 normal heart sound present and S2 normal heart sound present GI: Inspection: Yes normal to inspection Skin: General skin exam: no rashes or lesions noted Neuro: General: oriented to person, oriented to place and oriented to time Cognition (Neuro): normal cognition Speech: Abnormal speech present Objective Data Current Medications Generic Name Dose Route Start Last Admin Trade Name Freq PRN Reason Stop Dose Admin Albuterol Sulfate 1.25 mg 05/24/20 02:27 Albuterol Sulfate (0.042%) 1.25 Mg/3 Ml Vial.Neb INHALE RQ4H PRN Shortness of Breath Amlodipine Besylate 5 mg 05/24/20 09:00 05/26/20 10:34 Amlodipine Besylate 5 Mg Tablet PO 5 mg DAILY JOSE LUIS Administration Protocol Dexamethasone Sodium Phosphate 6 mg 05/25/20 09:00 05/26/20 09:38 Dexamethasone Sod Phosphate 4 Mg/Ml Vial IVPUSH 6 mg DAILY JOSE LUIS Administration Heparin Sodium (Porcine) 5,000 unit 05/24/20 02:27 05/26/20 09:38 Heparin Sodium,Porcine 5,000 Unit/Ml Vial SUBCUT 5,000 unit Q8H JOSE LUIS Administration Hydrochlorothiazide 12.5 mg 05/24/20 09:00 05/26/20 09:35 Hydrochlorothiazide 12.5 Mg Tablet PO 12.5 mg DAILY [facility] Administration Protocol Lisinopril 5 mg 05/24/20 09:00 05/26/20 10:33 Lisinopril 5 Mg Tablet PO 5 mg DAILY JOSE LUIS Administration Protocol Pharmacy Consult 1 each 05/24/20 00:39 Consult Rx Perform Med Rec MISCELLANE ONCE PRN Consult order Sodium Chloride 3 ml 05/24/20 08:00 05/26/20 09:35 0.9 % Sodium Chloride Flush 3 Ml Syringe IVFLUSH 3 ml QSHIFT [facility] Administration Labs CBC & Chem 7: 05/24/20 05:41 05/24/20 05:41 Assessment and Plan (1) Pneumonia due to COVID-19 virus: Status: Acute (2) Hypoxia: Status: Acute (3) HTN (hypertension): Status: Acute Assessment and Plan: Covid pneumonia with acute hypoxic respiratory failure improving still on 2 L of oxygen continue oxygen supplemental wean down as tolerated continue antibiotic Seen by ID recommended continue dexamethasone supportive care Sinus bradycardia asymptomatic patient reported she has low heart rate at baseline Hypertension continue amlodipine hydrochlorothiazide and lisinopril DVT prophylaxis heparin subcu
[2020-05-27] VITALS (7 sets, daily range): BP systolic 120–143; BP diastolic 58–71; PULSE 37–48; RESP 16–18; TEMP 36.2–36.9; O2SAT 92–99
[2020-05-27] MEDS: Heparin Sodium,Porcine 5,000 UNIT/ML VIAL 5000 UNIT SUBCUT ×3 (01:34→17:41)
--- NOTE | 2020-05-27 05:09 | PC.NURSE ---
care assumed 23:15...awake..alert..oriented x3...apprpriate mentation...bp stable..respirations easy at rest..mild koroma...denies/offers no complaints...remains s.gabe...hr 35-40 asleep...asymptomatic when awakened...s.gabe hr 40's-50's awake...hr unchanged from past several nights in icu...oob steady gait x2 to void..no dizzyness...restful...aware of planned [place] [facility] [facility]..restful
[2020-05-27] MEDS: dexAMETHasone sod phosphate 4 MG/ML VIAL 6 MG IVPUSH (08:41)
[2020-05-27] MEDS: 0.9 % Sodium Chloride Flush 3 ML SYRINGE IVFLUSH ×2 (08:46→16:17)
[2020-05-27] MEDS: lisinopriL 5 MG TABLET PO (09:21)
[2020-05-27] MEDS: amLODIPine Besylate 5 MG TABLET PO (09:21)
[2020-05-27] MEDS: hydroCHLOROthiazide 12.5 MG TABLET PO (09:22)
--- NOTE | 2020-05-27 15:59 | P.PNIM_ITS ---
Subjective Subjective Date of Service: 05/27/20 Interval History: Dyspnea improved, currently on 2L via NC. HR drops in to the 30s-40s. per pt this is chronic. She denies dizziness or lightheadedness. No fever/chills. No nausea/vomiting. No anosmia/dysgeusia Physical Exam Vital Signs: Vital Signs: Last Vital Signs Temp 97.6 F 05/27/20 11:32 Pulse 45 L 05/27/20 11:32 Resp 18 05/27/20 11:32 BP 143/71 H 05/27/20 11:32 Pulse Ox 99 05/27/20 11:32 Body Mass Index 31.0 Gen: in no acute distress HEENT: sclera anicteric, moist mucus membranes Neck: supple Lungs: no respiratory distress, auscultation deferred due to COVID-19 Heart: normal peripheral pulses but bradycardic Abd: soft, non-tender, non-distended Ext: no cyanosis, clubbing, or edema Skin: warm/well-perfused Neuro: alert and oriented x3, no focal findings Psych: appropriate affect Objective Data Current Medications Generic Name Dose Route Start Last Admin Trade Name Freq PRN Reason Stop Dose Admin Albuterol Sulfate 1.25 mg 05/24/20 02:27 Albuterol Sulfate (0.042%) 1.25 Mg/3 Ml Vial.Neb INHALE RQ4H PRN Shortness of Breath Amlodipine Besylate 5 mg 05/24/20 09:00 05/27/20 09:21 Amlodipine Besylate 5 Mg Tablet PO 5 mg DAILY JOSE LUIS Administration Protocol Dexamethasone Sodium Phosphate 6 mg 05/25/20 09:00 05/27/20 08:41 Dexamethasone Sod Phosphate 4 Mg/Ml Vial IVPUSH 6 mg DAILY JOSE LUIS Administration Heparin Sodium (Porcine) 5,000 unit 05/24/20 02:27 05/27/20 08:45 Heparin Sodium,Porcine 5,000 Unit/Ml Vial SUBCUT 5,000 unit Q8H JOSE LUIS Administration Hydrochlorothiazide 12.5 mg 05/24/20 09:00 05/27/20 09:22 Hydrochlorothiazide 12.5 Mg Tablet PO 12.5 mg DAILY JOSE LUIS Administration Protocol Lisinopril 5 mg 05/24/20 09:00 05/27/20 09:21 Lisinopril 5 Mg Tablet PO 5 mg DAILY JOSE LUIS Administration Protocol Pharmacy Consult 1 each 05/24/20 00:39 Consult Rx Perform Med Rec MISCELLANE ONCE PRN Consult order Sodium Chloride 3 ml 05/24/20 08:00 05/27/20 08:46 0.9 % Sodium Chloride Flush 3 Ml Syringe IVFLUSH 3 ml QSHIFT [facility] Administration Labs CBC & Chem 7: 05/24/20 05:41 05/24/20 05:41 Assessment and Plan (1) Pneumonia due to COVID-19 virus: Status: Acute (2) Hypoxia: Status: Acute (3) HTN (hypertension): Status: Acute Assessment and Plan: hospital d#4 69yo F with HTN admitted for COVID-19 PNA # acute hypoxic respiratory failure - supplemental O2, wean as tolerated # COVID-19 PNA - d#3/10 of dexamethasone, recheck inflammatory markers in am # sinus bradycardia - asymptomatic, baseline # HTN - continue amlodipine, HCTZ, lisinopril # thoracic aortic aneurysm, incidental - 4.1 cm, outpt f/u # VTE ppx - UFH
[2020-05-28] VITALS (7 sets, daily range): BP systolic 107–156; BP diastolic 60–82; PULSE 37–54; RESP 16–20; TEMP 36.4–37.1; O2SAT 94–99
[2020-05-28] MEDS: 0.9 % Sodium Chloride Flush 3 ML SYRINGE IVFLUSH ×4 (00:30→20:21)
[2020-05-28] MEDS: Heparin Sodium,Porcine 5,000 UNIT/ML VIAL 5000 UNIT SUBCUT ×3 (02:11→17:21)
--- NOTE | 2020-05-28 02:30 | ECG_ITS ---
Test Reason : Rhythm check Blood Pressure : / mmHG Vent. Rate : 035 BPM Atrial Rate : 035 BPM P-R Int : 166 ms QRS Dur : 080 ms QT Int : 530 ms P-R-T Axes : 046 029 073 degrees QTc Int : 404 ms Marked sinus bradycardia Abnormal ECG No previous ECGs available Referred By: Migel Holden Electronically Signed By:REHANA SAHNI MD
[2020-05-28 06:05] LABS: Basophils Percent Auto 0.1 % (0-2); Hematocrit 42.5 % (37-47); Hemoglobin 13.6 g/dl (12.0-16.0); Imm Gran Abs Auto 0.12 X10*3/uL (0.00-0.03); Imm Gran Pct Auto 1.2 % (0.0-0.4); Lymphocytes Absolute Auto 2.2 X10*3/uL (1.2-4.9); Lymphocytes Percent Auto 21.7 % (20-40); MANUAL DIFF FLAG SCAN; Mean Corpuscular Hemoglobin 28.9 pg (27.0-33.0); Mean Corpuscular Volume 90.4 fL (80-98); Mean Platelet Volume 10.5 fL (9.4-12.3); Monocytes Absolute Auto 0.9 X10*3/uL (0.1-1.2); Monocytes Percent Auto 9.3 % (2-11); Neutrophils Absolute Auto 6.7 X10*3/uL (2.0-8.3); Neutrophils Percent Auto 67.7 % (45-73); Platelet Count 424 X10*3/uL (160-400); Red Cell Distribution Width 13.3 % (11.0-16.0); SCAN SMEAR FLAG 1; White Blood Count 9.9 X10*3/uL (4.8-10.8)
[2020-05-28 06:09] LABS: D Dimer 244 NG/ML
[2020-05-28 06:35] LABS: SLIDE REVIEW VERIFIED
[2020-05-28 06:38] LABS: Alanine Aminotransferase 40 U/L (0-31); Albumin Level 3.5 g/dL (3.5-5.0); Alkaline Phosphatase 52 U/L (39-117); Anion Gap 14 (12-20); Aspartate Amino Transferase 32 U/L (5-31); Bilirubin Total 0.7 mg/dL (0.0-1.0); Blood Urea Nitrogen 23 mg/dL (9-16); Calcium 9.1 mg/dL (8.4-10.2); Carbon Dioxide 27 mmol/L (22-29); Chloride 101 mmol/L (96-108); Creatinine Clr Calc Pharmacy 82.6; Estimated Glomerular Filt Rate > 60; Glucose Random 102 mg/dL (60-115); Lactate Dehydrogenase 203 U/L (122-220); Potassium 4.2 mmol/l (3.3-5.1); Sodium 138 mmol/L (135-145); Total Protein 6.3 g/dL (6.5-8.0)
[2020-05-28 06:44] LABS: Procalcitonin 0.04 ng/mL
[2020-05-28 06:53] LABS: Ferritin 379 ng/mL (10-250)
--- NOTE | 2020-05-28 07:18 | PC.NURSE ---
Patient's HR as low as 31 overnight, asymptomatic, ? longburst of idioventricular rhythm. Dr. Holden notified. EKG done, showing sinus bradycardia. Will continue to monitor.
--- NOTE | 2020-05-28 08:19 | MHC.CM.PN ---
at this time dc plan is home no svcs. son to provide transportation. cm to cont. to follow.
[2020-05-28] MEDS: lisinopriL 5 MG TABLET PO (08:59)
[2020-05-28] MEDS: amLODIPine Besylate 5 MG TABLET PO (08:59)
[2020-05-28] MEDS: hydroCHLOROthiazide 12.5 MG TABLET PO (08:59)
[2020-05-28] MEDS: dexAMETHasone sod phosphate 4 MG/ML VIAL 6 MG IVPUSH (09:00)
--- NOTE | 2020-05-28 16:48 | HO.PM.IMPN ---
Subjective Subjective Date of Service: 05/28/20 Interval History: still dyspneic with exertion though improved no fever/chills no chest pain no GI symptoms Physical Exam Vital Signs: Vital Signs: Last Vital Signs Temp 98.0 F 05/28/20 15:49 Pulse 43 L 05/28/20 15:49 Resp 20 05/28/20 15:49 BP 111/68 05/28/20 15:49 Pulse Ox 95 05/28/20 15:49 Body Mass Index 31.0 Gen: in no acute distress HEENT: sclera anicteric, moist mucus membranes Neck: supple Lungs: no respiratory distress, auscultation deferred due to COVID-19 Heart: normal peripheral pulses but bradycardic Abd: soft, non-tender, non-distended Ext: no cyanosis, clubbing, or edema Skin: warm/well-perfused Neuro: alert and oriented x3, no focal findings Psych: appropriate affect Objective Data Current Medications Generic Name Dose Route Start Last Admin Trade Name Freq PRN Reason Stop Dose Admin Albuterol Sulfate 1.25 mg 05/24/20 02:27 Albuterol Sulfate (0.042%) 1.25 Mg/3 Ml Vial.Neb INHALE RQ4H PRN Shortness of Breath Amlodipine Besylate 5 mg 05/24/20 09:00 05/28/20 08:59 Amlodipine Besylate 5 Mg Tablet PO 5 mg DAILY JOSE LUIS Administration Protocol Dexamethasone Sodium Phosphate 6 mg 05/25/20 09:00 05/28/20 09:00 Dexamethasone Sod Phosphate 4 Mg/Ml Vial IVPUSH 6 mg DAILY JOSE LUIS Administration Heparin Sodium (Porcine) 5,000 unit 05/24/20 02:27 05/28/20 09:00 Heparin Sodium,Porcine 5,000 Unit/Ml Vial SUBCUT 5,000 unit Q8H JOSE LUIS Administration Hydrochlorothiazide 12.5 mg 05/24/20 09:00 05/28/20 08:59 Hydrochlorothiazide 12.5 Mg Tablet PO 12.5 mg DAILY JOSE LUIS Administration Protocol Lisinopril 5 mg 05/24/20 09:00 05/28/20 08:59 Lisinopril 5 Mg Tablet PO 5 mg DAILY JOSE LUIS Administration Protocol Pharmacy Consult 1 each 05/24/20 00:39 Consult Rx Perform Med Rec MISCELLANE ONCE PRN Consult order Sodium Chloride 3 ml 05/24/20 08:00 05/28/20 08:59 0.9 % Sodium Chloride Flush 3 Ml Syringe IVFLUSH 3 ml [facility] Administration Labs CBC & Chem 7: 05/28/20 05:31 05/28/20 05:31 Labs: Laboratory Results - last 24 hr 05/28/20 05/28/20 05/28/20 05:31 05:31 05:31 WBC 9.9 RBC 4.70 Hgb 13.6 Hct 42.5 MCV 90.4 MCH 28.9 MCHC 32.0 RDW 13.3 Plt Count 424 H D MPV 10.5 Immature Gran % (Auto) 1.2 H Neut % (Auto) 67.7 Lymph % (Auto) 21.7 [place] % (Auto) 9.3 Eos % (Auto) 0.0 Baso % (Auto) 0.1 Lymph # (Auto) 2.2 [place] # (Auto) 0.9 Eos # (Auto) 0.0 Baso # (Auto) 0.0 Abs Immat Gran (auto) 0.12 H Absolute Neuts (auto) 6.7 Absolute Nucleated RBC 0.000 Nucleated RBC % (auto) 0.0 Smear Tech's Comments VERIFIED D-Dimer 244 Sodium 138 Potassium 4.2 Chloride 101 Carbon Dioxide 27 Anion Gap 14 BUN 23 H D Creatinine 0.80 Estim Creat Clear Calc 82.6 Estimated GFR > 60 Random Glucose 102 Calcium 9.1 D Ferritin 379 H Total Bilirubin 0.7 AST 32 H ALT 40 H Alkaline Phosphatase 52 Lactate Dehydrogenase 203 C-Reactive Protein 0.50 Total Protein 6.3 L Albumin 3.5 Procalcitonin 05/28/20 05:31 WBC RBC Hgb Hct MCV MCH MCHC RDW Plt Count MPV Immature Gran % (Auto) Neut % (Auto) Lymph % (Auto) [place] % (Auto) Eos % (Auto) Baso % (Auto) Lymph # (Auto) [place] # (Auto) Eos # (Auto) Baso # (Auto) Abs Immat Gran (auto) Absolute Neuts (auto) Absolute Nucleated RBC Nucleated RBC % (auto) Smear Tech's Comments D-Dimer Sodium Potassium Chloride Carbon Dioxide Anion Gap BUN Creatinine Estim Creat Clear Calc Estimated GFR Random Glucose Calcium Ferritin Total Bilirubin AST ALT Alkaline Phosphatase Lactate Dehydrogenase C-Reactive Protein Total Protein Albumin Procalcitonin 0.04 Assessment and Plan (1) Pneumonia due to COVID-19 virus: Status: Acute (2) Hypoxia: Status: Acute (3) HTN (hypertension): Status: Acute Assessment and Plan: hospital d#5 69yo F with HTN admitted for COVID-19 PNA # acute hypoxic respiratory failure - supplemental O2, wean as tolerated, home O2 evaluation # COVID-19 PNA - d#4/ of dexamethasone, inflammatory markers improving # sinus bradycardia - asymptomatic, baseline # HTN - continue amlodipine, HCTZ, lisinopril # thoracic aortic aneurysm, incidental - 4.1 cm, outpt f/u # VTE ppx - UFH # dispo - possibly home tomorrow, may need home O2
[2020-05-29] MEDS: Heparin Sodium,Porcine 5,000 UNIT/ML VIAL 5000 UNIT SUBCUT ×2 (01:08→08:58)
[2020-05-29 04:00] VITALS: BP 130/61; PULSE 38; RESP 18; TEMP 36.4; O2SAT 97
--- NOTE | 2020-05-29 06:29 | PC.NURSE ---
PT WEANED OFF SUPPLEMENTAL O2. O2 SATS REMAIN 94-97% . PT DENIES SOB. NO ACUTE DISTRESS NOTED. WILL CONTINUE TO MONITOR.
[2020-05-29 07:50] VITALS: BP 135/79; PULSE 43; RESP 18; TEMP 37; O2SAT 96
[2020-05-29 07:59] VITALS: PULSE 43; PULSE 56; O2SAT 94; O2SAT 95
[2020-05-29] MEDS: lisinopriL 5 MG TABLET PO (08:58)
[2020-05-29] MEDS: dexAMETHasone sod phosphate 4 MG/ML VIAL 6 MG IVPUSH (08:58)
[2020-05-29] MEDS: amLODIPine Besylate 5 MG TABLET PO (08:58)
[2020-05-29] MEDS: hydroCHLOROthiazide 12.5 MG TABLET PO (08:58)
[2020-05-29] MEDS: 0.9 % Sodium Chloride Flush 3 ML SYRINGE IVFLUSH (08:58)
--- NOTE | 2020-05-29 11:10 | MHC.CM.PN ---
Female 69 Dx SOB. DP DC to home with [facility]. Pts son providing transport.
[2020-05-29 11:19] VITALS: BP 109/66; PULSE 45; RESP 18; TEMP 36.1; O2SAT 95
--- NOTE | 2020-05-29 11:47 | W.MHC.F2F ---
Service Date Service Date: 05/29/20 Encounter Date of encounter: 05/29/20 Reasons for Services Reason for longterm: medication management, teach disease management and other (respiratory assessment) MD Overseeing Care: Arthur Peter Homebound: Leaving the home is medically contraindicated at this time without the asist of a device and/or another person due th the listed conditions above and below. Homebound supporting statement: Ms Jimenes [place] [facility] for COVID pneumonia with hypoxia. Certification: Based on the above findings, I certify that this patient is confined to the home and needs intermittent longterm care, physical therapy and/or speech therapy, or continues to need occupational therapy. The patient is under my care, and I have initiated the establishment of the plan of care. The patient will be followed by a physician who will periodically review the plan of care.
--- NOTE | 2020-05-29 12:02 | P.DS_ITS ---
DS: Providers Provider Date of admission: 05/24/20 01:54 Primary care physician: Arthur Peter MD Consults: 05/24/20 02:27 Consult to Infectious Diseases Routine Consulting Provider: Sandi Holm Reason for consultation: covid infection Has provider been notified: No DS: Diagnosis Discharge Diagnosis (1) Pneumonia due to COVID-19 virus: Status: Acute (2) Hypoxia: Status: Acute (3) HTN (hypertension): Status: Acute DS: Medications Discharge Medications Home Medications: Home Medications Medication Instructions Recorded Confirmed amlodipine 1 tab PO DAILY 05/23/20 05/23/20 hydrochlorothiazide 1 tab PO DAILY 05/23/20 05/23/20 lisinopril 1 tab PO DAILY 05/23/20 05/23/20 Previous Rx's Medication Instructions Recorded Pulse oximeter #1 ea 05/29/20 dexamethasone 6 mg PO DAILY #5 tab 05/29/20 DS: Summary Hospital Course Hospital Course: From the admission history and physical by hospitalist Saira Klein, 05/24/20: 69 y/o female with PMHX of HTN who presented from home due to worsening SOB. Per history provided by the patient for the past 9 days has been having worsening symptoms of difficulty breathing at rest associated with a dry cough, intermittent episodes of fever/chills, chest pain and one episode of diarrhea. Patient reports was diagnosed with covid + infection on 05/15/20. On presentation to the ED vitals were found to be stable, no episodes of fever. Oxygen on room air of 88-89% which improved to 92-96% on 4 liters Nasal cannula. Na of 133, Ferritin 403, LDH of 272 and CRP of 2.51. CTA done which is negative for PE but positive for bilateral ground glass opacities and ascending aortic aneurysm of 4.1 cm. One dose of solumedrol IV, albuterol, Rocephin and doxy given per ED. Decision for admission given. The patient was [facility] on contact/droplet isolation and treated with dexamethasone. Oxygen was gradually weaned off and inflammatory markers improved. She did not qualify for home oxygen. She did not have evidence of bacterial superinfection. She was discharged home with VNA services. She is out of the window for 10-day isolation from symptom onset. Time Spent with Patient Time attestation: Total time spent providing and/or coordinating discharge services: 40 Physical Exam Vital Signs: Vital Signs: Last Vital Signs Temp 97.0 F 05/29/20 11:19 Pulse 45 L 05/29/20 11:19 Resp 18 05/29/20 11:19 BP 109/66 05/29/20 11:19 Pulse Ox 95 05/29/20 11:19 Body Mass Index 31.0 Gen: in no acute distress HEENT: sclera anicteric, moist mucus membranes Neck: supple Lungs: no respiratory distress, auscultation deferred due to COVID-19 Heart: normal peripheral pulses but bradycardic Abd: soft, non-tender, non-distended Ext: no cyanosis, clubbing, or edema Skin: warm/well-perfused Neuro: alert and oriented x3, no focal findings Psych: appropriate affect Laboratory Results WBC 9.9 X10*3/uL (4.8 -10.8) 05/28/20 05:31 RBC 4.70 X10*6/uL (4. 20-5.50) 05/28/20 05:31 Hgb 13.6 g/dl (12.0-1 6.0) 05/28/20 05:31 Hct 42.5 % (37-47) 05/28/20 05:31 MCV 90.4 fL (80-98) 05/28/20 05:31 MCH 28.9 pg (27.0-33. 0) 05/28/20 05:31 MCHC 32.0 g/dl (31.0-3 5.0) 05/28/20 05:31 RDW 13.3 % (11.0-16.0 ) 05/28/20 05:31 Plt Count 424 X10*3/uL (160 -400) H D 05/28/20 05:31 MPV 10.5 fL (9.4-12.3 ) 05/28/20 05:31 Immature Gran % (A uto) 1.2 % (0.0-0.4) H 05/28/20 05:31 Neut % (Auto) 67.7 % (45-73) 05/28/20 05:31 Lymph % (Auto) 21.7 % (20-40) 05/28/20 05:31 [place] % (Auto) 9.3 % (2-11) 05/28/20 05:31 Eos % (Auto) 0.0 % (0-4) 05/28/20 05:31 Baso % (Auto) 0.1 % (0-2) 05/28/20 05:31 Lymph # (Auto) 2.2 X10*3/uL (1.2 -4.9) 05/28/20 05:31 [place] # (Auto) 0.9 X10*3/uL (0.1 -1.2) 05/28/20 05:31 Eos # (Auto) 0.0 X10*3/uL (0.0 -0.4) 05/28/20 05:31 Baso # (Auto) 0.0 X10*3/uL (0.0 -0.2) 05/28/20 05:31 Abs Immat Gran (au to) 0.12 X10*3/uL (0. 00-0.03) H 05/28/20 05:31 Absolute Neuts (au to) 6.7 X10*3/uL (2.0 -8.3) 05/28/20 05:31 Absolute Nucleated RBC 0.000 X10*3/uL (0 .0-0.012) 05/28/20 05:31 Nucleated RBC % (a uto) 0.0 /100WBC (0.0- 0.2) 05/28/20 05:31 Smear Tech's Comme nts VERIFIED 05/28/20 05:31 D-Dimer 244 NG/ML 05/28/20 05:31 Sodium 138 mmol/L (135-1 45) 05/28/20 05:31 Potassium 4.2 mmol/l (3.3-5 .1) 05/28/20 05:31 Chloride 101 mmol/L (96-10 8) 05/28/20 05:31 Carbon Dioxide 27 mmol/L (22-29) 05/28/20 05:31 Anion Gap 14 (-20) 05/28/20 05:31 BUN 23 mg/dL (9-16) H D 05/28/20 05:31 Creatinine 0.80 mg/dL (0.5-1 .4) 05/28/20 05:31 Estim Creat Clear Calc 82.6 05/28/20 05:31 Estimated GFR > 60 05/28/20 05:31 Random Glucose 102 mg/dL (60-115 ) 05/28/20 05:31 Calcium 9.1 mg/dL (8.4-10 .2) D 05/28/20 05:31 Phosphorus 2.7 mg/dL (2.7-4. 5) 05/23/20 19:52 Magnesium 1.9 mg/dL (1.6-2. 6) 05/23/20 19:52 Ferritin 379 ng/mL (10-250 ) H 05/28/20 05:31 Direct Bilirubin 0.2 mg/dL (0.0-0. 5) 05/23/20 19:52 Total Bilirubin 0.7 mg/dL (0.0-1. 0) 05/28/20 05:31 AST 32 U/L (5-31) H 05/28/20 05:31 ALT 40 U/L (0-31) H 05/28/20 05:31 Alkaline Phosphata se 52 U/L (39-117) 05/28/20 05:31 Lactate Dehydrogen ase 203 U/L (122-220) 05/28/20 05:31 Total Creatine Kin ase 76 U/L (26-140) 05/23/20 19:52 Troponin I High Se ns 5.9 ng/L (<3.5-17 .0) 05/23/20 19:16 C-Reactive Protein 0.50 mg/dL (< or = 0.50) 05/28/20 05:31 Total Protein 6.3 g/dL (6.5-8.0 ) L 05/28/20 05:31 Albumin 3.5 g/dL (3.5-5.0 ) 05/28/20 05:31 LDL Cholesterol Di rect 106 mg/dL (<100) H 05/23/20 19:52 Lipase Cancelled 05/23/20 19:16 Procalcitonin 0.04 ng/mL 05/28/20 05:31 Respiratory Panel [place] See Note 05/24/20 02:54 Adenovirus (Rapid PCR) Not Detected (No t Detect.) 05/24/20 02:54 B.pert (TEM-PCR) Not Detected (No t Detect.) 05/24/20 02:54 B.parapertussis DN A PCR Not Detected (No t Detect.) 05/24/20 02:54 C. pneumoniae DNA (PCR) Not Detected (No t Detect.) 05/24/20 02:54 Coronavirus OC43 ( PCR) Not Detected (No t Detect.) 05/24/20 02:54 Coronavirus HKU1 ( PCR) Not Detected (No t Detect.) 05/24/20 02:54 Coronavirus 229E ( PCR) Not Detected (No t Detect.) 05/24/20 02:54 Coronavirus NL63 ( PCR) Not Detected (No t Detect.) 05/24/20 02:54 Human Metapneumovi r PCR Not Detected (No t Detect.) 05/24/20 02:54 Influenza A (RT-PC R) Not Detected (No t Detect.) 05/24/20 02:54 Influenza B (RT-PC R) Not Detected (No t Detect.) 05/24/20 02:54 M. pneumoniae (PCR ) Not Detected (No t Detect.) 05/24/20 02:54 Parainfluenza 1 (P CR) Not Detected (No t Detect.) 05/24/20 02:54 Parainfluenza 2 (P CR) Not Detected (No t Detect.) 05/24/20 02:54 Parainfluenza 3 (P CR) Not Detected (No t Detect.) 05/24/20 02:54 Parainfluenza 4 (P CR) Not Detected (No t Detect.) 05/24/20 02:54 RSV (PCR) Not Detected (No t Detect.) 05/24/20 02:54 Entero/Rhino (PCR) Not Detected (No t Detect.) 05/24/20 02:54 SARS-CoV-2 RNA (RT -PCR) Detected (Not De tect.) A 05/24/20 02:54 Impressions Chest CTA 05/23/20 20:03 IMPRESSION: 1. No evidence of filling defects to suggest pulmonary embolus. 2. Extensive multifocal airspace and ground glass opacities in bilateral hemithoraces. The findings are compatible with infectious/inflammatory process, correlating with the clinical history of Covid positive disease. 3. Dilated ascending aorta measuring 4.1 cm. 4. Right hilar lymphadenopathy. 5. Small hiatal hernia. VTE: negative Discharge Plan Discharge Anticipated Discharge Date/Time: 05/29/20 11:57 Patient Disposition: Home Health Service Referrals: Physician,Unknown [Primary Care Provider] - Discharge Medications: New dexamethasone 6 mg tablet 6 mg PO DAILY Qty: 5 RF: 0 (DME) Pulse oximeter See Rx Instructions .Route .MEDSUPPLY Qty: 1 RF: 0 Continued amlodipine 5 mg tablet 1 tab PO DAILY RF: 0 lisinopril 5 mg tablet 1 tab PO DAILY RF: 0 hydrochlorothiazide 12.5 mg tablet 1 tab PO DAILY RF: 0 Discontinued azithromycin 250 mg tablet 1 dose pk PO DIRECTED RF: 0 Discharge Orders: Discharge Order (Routine); Ordered 05/29/20 Ordered By: Jasmyne Savage Diet: low salt diet Activity on Discharge: As tolerated Patient Instructions: Viral Pneumonia (DC), Pneumonia (DC) Visit Report Forms: Patient Portal Discharge page Care Plan Goals: relief of hypoxia and dyspnea Health Concerns: COVID-19 pneumonia Plan of Treatment: dexamethasone 6 mg daily for 5 more days check oxygen saturation daily and as needed for any shortness of breath; return to ED if <92% follow up with your primary care doctor in 1 week
== END 2020-05-29 14:20 | disposition home health service (06) | DRG 137 ==
LOC: HO.ED 05-24 00:39 → HO.ICU 05-24 02:26 → HO.IMC 05-27 05:41
PROVIDERS: Admitting Provider Internal Medicine; Emergency Provider Emergency Medicine Emergency Medical Services; PCP Internal Medicine; Visit Provider Family Medicine
DX: U07.1 COVID-19 (principal); J96.01 Acute respiratory failure with hypoxia; J12.89 Other viral pneumonia; I71.2 Thoracic aortic aneurysm, without rupture; R00.1 Bradycardia, unspecified; I10 Essential (primary) hypertension; Z79.899 Other long term (current) drug therapy
CPT/HCPCS: 36415; 71275; 80048; 80053; 80076; 82550; 82728; 83615; 83721; 83735; 84100; 84145; 84484; 85025; 85379; 86140; 87633; 93005; 96365; 96367; 96375; 99285; J0696; J1100; J2930; Q9967

== ENCOUNTER 2021-01-19 12:36 | Outpatient (REF) | payer OTHER, SELFPAY | END 2021-01-19 12:37 | disposition home or self-care (01) | LOC: HO.LNP 12:36 | PROVIDERS: Visit Provider Physician Assistant Medical | DX: Z20.822 Contact with and (suspected) exposure to COVID-19 (principal) | CPT/HCPCS: U0003; U0005 ==

== ENCOUNTER 2021-01-30 10:17 | Outpatient (REF) | payer OTHER, SELFPAY ==
--- NOTE | ~2021-01-30 | US_ITS ---
EXAMINATION: US VENOUS ULTRASOUND WITH DOPPLER LOWER EXTREMITY, RIGHT CLINICAL INFORMATION: Right calf pain. COMPARISON: None TECHNIQUE: Ultrasound of the deep veins is performed from the hip to the calf with compression sonography and color and pulse Doppler assessment. Spectral analysis with color-flow imaging is performed. FINDINGS: There is normal venous compression and respiratory variation and augmented flow. The visualized common femoral vein, superficial femoral vein, profunda femoral vein, popliteal vein, and the trifurcation region shows no evidence of deep venous thrombosis. There is no significant popliteal fossa cyst. Incidental finding of a small left groin lymph node measuring 4.5 x 0.9 x 4.1 cm. If the patient's symptoms persist, followup ultrasound in 5 days 7 days might be of value to exclude proximal propagation from a non-visualized calf vein. US/US venous duplex LE RT IMPRESSION: No DVT demonstrated in the right lower extremity.
== END 2021-01-30 10:18 | disposition home or self-care (01) ==
LOC: HO.HMGCX 10:17
PROVIDERS: PCP Internal Medicine; Visit Provider Nurse Practitioner
DX: M79.661 Pain in right lower leg (principal)
CPT/HCPCS: 93971

== ENCOUNTER 2021-02-06 08:47 | Outpatient (REF) | payer OTHER, SELFPAY ==
--- NOTE | ~2021-02-06 | XR_ITS ---
EXAMINATION: XR ANKLE, RIGHT CLINICAL INFORMATION: Possible abnormal bright or stenting to right medial ankle over 2-3 weeks ago. Persistent redness. COMPARISON: None. TECHNIQUE: AP, lateral, and mortise views of the right ankle. FINDINGS: No acute fracture or dislocation. The ankle mortise is maintained. No joint space narrowing or marginal osteophytes. No osseous erosion. No abnormal soft tissue calcification or radiopaque foreign body. Prominent medial soft tissue swelling and edema. XR/XR ankle RT 2V IMPRESSION: Prominent medial soft tissue swelling and edema without radiopaque foreign body or acute osseous abnormality.
== END 2021-02-06 08:48 | disposition home or self-care (01) ==
LOC: HO.XRAY 08:47
PROVIDERS: PCP Internal Medicine; Visit Provider Internal Medicine
DX: M25.571 Pain in right ankle and joints of right foot (principal)
CPT/HCPCS: 73600

== ENCOUNTER 2021-06-24 19:13 | Outpatient (REF) | payer OTHER, SELFPAY ==
[2021-06-24 19:45] LABS: COVID-19 Test Positive (Negative)
== END 2021-06-24 19:14 | disposition home or self-care (01) ==
LOC: HO.LAB 19:13
PROVIDERS: PCP Internal Medicine; Visit Provider Internal Medicine
DX: Z20.822 Contact with and (suspected) exposure to COVID-19 (principal)
CPT/HCPCS: 36415; 87635

== ENCOUNTER 2022-04-23 14:00 | Outpatient (REF) | payer OTHER, MEDICARE, SELFPAY ==
--- NOTE | ~2022-04-23 | MM_ITS ---
EXAMINATION: MM SCREENING DIGITAL BREAST TOMOSYNTHESIS, BILATERAL CLINICAL INFORMATION: Screening. Asymptomatic. COMPARISON: Outside mammography: 11/13/2016, 03/26/2015, 04/05/2014, 03/24/2014 ([facility]) TECHNIQUE: Digital breast tomosynthesis is performed in both the craniocaudal and mediolateral oblique views along with computer-aided detection (CAD). Synthesized 2D images are generated from the tomosynthesis. FINDINGS: The breasts are almost entirely fatty (ACR BI-RADS breast composition Category a). Background stromal and fibroglandular densities are similar to prior studies. There is a tiny oil cyst central anterior left breast. No abnormal calcifications. No architectural abnormality. The axilla and skin contours are unremarkable. No significant changes. MM/MM tomosynthesis screening BI IMPRESSION: No mammographic evidence of malignancy. ASSESSMENT: BI-RADS 2: Benign RECOMMENDATION: Routine annual mammography screening. This patient's information was entered into a reminder system with a target due date for their next mammogram.
== END 2022-04-23 14:01 | disposition home or self-care (01) ==
LOC: HO.MAMMO 14:00
PROVIDERS: PCP Internal Medicine; Visit Provider Internal Medicine
DX: Z12.31 Encounter for screening mammogram for malignant neoplasm of breast (principal)
CPT/HCPCS: 77063; 77067

== ENCOUNTER 2023-02-25 07:09 | Outpatient (REF) | payer OTHER, MEDICARE, SELFPAY ==
[2023-02-25 11:49] LABS: MANUAL DIFF FLAG NO
[2023-02-25 12:04] LABS: Basophils Absolute Auto 0.1 X10*3/uL (0.0-0.2); Basophils Percent Auto 0.8 % (0-2); Eosinophils Absolute Auto 0.2 X10*3/uL (0.0-0.4); Eosinophils Percent Auto 2.6 % (0-4); Imm Gran Abs Auto 0.01 X10*3/uL (0.00-0.03); Imm Gran Pct Auto 0.2 % (0.0-0.4); Lymphocytes Absolute Auto 2.5 X10*3/uL (1.2-4.9); Lymphocytes Percent Auto 40.2 % (20-40); Mean Corpuscular Hemoglobin 29.5 pg (27.0-33.0); Mean Corpuscular Volume 95.5 fL (80.0-98.0); Mean Platelet Volume 10.6 fL (9.4-12.3); Monocytes Absolute Auto 0.5 X10*3/uL (0.1-1.2); Monocytes Percent Auto 8.1 % (2-11); Neutrophils Percent Auto 48.1 % (45-73); Platelet Count 327 X10*3/uL (160-400); Red Cell Distribution Width 13.6 % (11.0-16.0); White Blood Count 6.2 X10*3/uL (4.8-10.8)
[2023-02-25 12:19] LABS: Alanine Aminotransferase 16 U/L (0-31); Albumin Level 3.9 g/dL (3.5-5.0); Alkaline Phosphatase 64 U/L (39-117); Anion Gap 13 (12-20); Aspartate Amino Transferase 17 U/L (5-31); Bilirubin Total 0.7 mg/dL (0.0-1.0); Blood Urea Nitrogen 16 mg/dL (9-16); Calcium 9.6 mg/dL (8.4-10.2); Carbon Dioxide 27 mmol/L (22-29); Chloride 108 mmol/L (96-108); Cholesterol 198 mg/dL (<200); Estimated Glomerular Filt Rate 55; Glucose Random 95 mg/dL (60-115); HDL Cholesterol 40 mg/dL (>40); LDL Cholesterol Calculated 137 mg/dL (<100); Potassium 4.2 mmol/L (3.3-5.1); Sodium 144 mmol/L (135-145); Total Protein 6.8 g/dL (6.5-8.0); Triglycerides 107 mg/dL (<150)
== END 2023-02-25 07:10 | disposition home or self-care (01) ==
LOC: HO.HMGCLDS 07:09
PROVIDERS: PCP Internal Medicine; Visit Provider Physician Assistant Medical
DX: E78.5 Hyperlipidemia, unspecified (principal); I10 Essential (primary) hypertension; E66.9 Obesity, unspecified
CPT/HCPCS: 36415; 80053; 80061; 85025

== ENCOUNTER 2023-05-21 15:08 | Outpatient (REF) | payer OTHER, MEDICARE, SELFPAY ==
--- NOTE | ~2023-05-21 | MM_ITS ---
EXAMINATION: MM SCREENING DIGITAL BREAST TOMOSYNTHESIS, BILATERAL CLINICAL INFORMATION: Screening. Asymptomatic. COMPARISON: Mammography: This study is compared with prior exams dating back to 2017. TECHNIQUE: Digital breast tomosynthesis is performed in both the craniocaudal and mediolateral oblique views along with computer-aided detection (CAD). Synthesized 2D images are generated from the tomosynthesis. FINDINGS: The breasts are almost entirely fatty (ACR BI-RADS breast composition Category a). There are no significant masses, abnormal calcifications, or other abnormalities. MM/MM tomosynthesis screening BI IMPRESSION: No mammographic evidence of malignancy. ASSESSMENT: BI-RADS BI-RADS 1 - Negative RECOMMENDATION: Routine annual mammography screening. 1 year F/U This examination should not preclude the clinical evaluation of a suspicious palpable abnormality. This patient's information was entered into a reminder system with a target due date for their next mammogram.
== END 2023-05-21 15:09 | disposition home or self-care (01) ==
LOC: HO.MAMMO 15:08
PROVIDERS: PCP Internal Medicine; Visit Provider Internal Medicine
DX: Z12.31 Encounter for screening mammogram for malignant neoplasm of breast (principal)
CPT/HCPCS: 77063; 77067

== ENCOUNTER → 2023-05-21 15:15 | Outpatient (BNV) | payer OTHER, MEDICARE, SELFPAY | PROVIDERS: PCP Internal Medicine; Visit Provider Radiology Diagnostic Radiology | DX: Z12.31 Encounter for screening mammogram for malignant neoplasm of breast (principal) | CPT/HCPCS: 77063; 77067 ==

== ENCOUNTER 2023-06-07 07:59 | Emergency (ER) | payer OTHER, MEDICARE, SELFPAY ==
--- NOTE | ~2023-06-07 | XR_ITS ---
EXAMINATION: XR ANKLE, RIGHT XR TIBIA-FIBULA, RIGHT CLINICAL INFORMATION: Overlying cellulitis. Pain and tenderness. No injury. COMPARISON: None TECHNIQUE: AP, lateral, and mortise views of the right ankle. AP and lateral views of the right tibia and fibula. FINDINGS: Tibia and fibula: Soft tissues are swollen with subcutaneous edema, more pronounced in the lower half of the lower leg. No evidence of underlying osteomyelitis. No subcutaneous gas. A few dystrophic calcifications are noted. Mild osteoarthritis is partially seen in the right knee joint. Right ankle: No fracture. Alignment is anatomic. Ankle mortise is symmetric. Joint spaces are maintained. No ankle joint effusion. Soft tissue swelling at the ankle. XR/XR ankle RT 2V IMPRESSION: Soft tissue swelling and subcutaneous edema in the right lower leg and ankle. No acute osseous findings. No evidence of osteomyelitis or subcutaneous gas.
--- NOTE | ~2023-06-07 | XR_ITS ---
EXAMINATION: XR ANKLE, RIGHT XR TIBIA-FIBULA, RIGHT CLINICAL INFORMATION: Overlying cellulitis. Pain and tenderness. No injury. COMPARISON: None TECHNIQUE: AP, lateral, and mortise views of the right ankle. AP and lateral views of the right tibia and fibula. FINDINGS: Tibia and fibula: Soft tissues are swollen with subcutaneous edema, more pronounced in the lower half of the lower leg. No evidence of underlying osteomyelitis. No subcutaneous gas. A few dystrophic calcifications are noted. Mild osteoarthritis is partially seen in the right knee joint. Right ankle: No fracture. Alignment is anatomic. Ankle mortise is symmetric. Joint spaces are maintained. No ankle joint effusion. Soft tissue swelling at the ankle. XR/XR tibia fibula RT 2V IMPRESSION: Soft tissue swelling and subcutaneous edema in the right lower leg and ankle. No acute osseous findings. No evidence of osteomyelitis or subcutaneous gas.
--- NOTE | ~2023-06-07 | US_ITS ---
EXAMINATION: RIGHT LOWER EXTREMITY DEEP VENOUS ULTRASOUND CLINICAL INFORMATION: Overlying cellulitis, rule out clot COMPARISON: Right lower extremity DVT study January 30, 2021 TECHNIQUE: Duplex Doppler imaging with compression maneuvers were performed of the right lower extremity deep venous system. FINDINGS: The visualized common femoral, femoral and popliteal veins demonstrate normal compressibility and color flow without evidence of venous thrombosis. Visualized portions of the calf veins demonstrate normal compressibility suggesting patency. There is no evidence of a Romero's cyst. A few mildly prominent lymph nodes are noted within the right groin, likely reactive. US/US venous duplex LE RT IMPRESSION: No evidence of deep venous thrombosis involving the right lower extremity.
[2023-06-07 08:09] VITALS: BP 122/72; PULSE 48; RESP 18; O2SAT 97; BMI 29.5
--- NOTE | 2023-06-07 09:07 | ED_ITS ---
HPI - Extremity Injury (Lower) General Chief Complaint: Extremity Injury, Lower Stated Complaint: R leg swelling Time Seen by Provider: 06/07/23 09:00 Source: patient Mode of arrival: ambulatory Limitations: no limitations History of Present Illness HPI Narrative: 72 year old female with pmhx significant for RLE cellulitis and HTN presents to the ED with redness/ pain/ warmth to her right lower leg x1 day. Pain is exacerbated with ambulating/bearing weight on to the right leg. Denies fever, chills, rash, chest pain, shortness of breath, nausea or vomiting, rash, swelling to the right leg. Denies recent travel or long car rides. Denies recent injury or trauma. Denies tick or insect bite. Reports same redness to the right lower leg 2 years ago s/p insect bite to right lower leg. She was placed on outpatient antibiotics. Did not require hospitalization. No issues since. Related Data Home Medications Medication Instructions Recorded Confirmed amlodipine 5 mg tablet 1 tab PO DAILY 05/23/20 05/23/20 hydrochlorothiazide 12.5 mg tablet 1 tab PO DAILY 05/23/20 05/23/20 lisinopril 5 mg tablet 1 tab PO DAILY 05/23/20 05/23/20 Previous Rx's Medication Instructions Recorded Pulse oximeter #1 ea 05/29/20 dexamethasone 6 mg tablet 6 mg PO DAILY #5 tabs 05/29/20 cephalexin 500 mg capsule 500 mg PO QID 10 days #40 caps 01/19/21 cephalexin 500 mg capsule 500 mg PO QID 10 days #40 caps 06/07/23 Allergies Allergy/AdvReac Type Severity Reaction Status Date / Time No Known Allergies Allergy Verified 06/07/23 08:08 Review of Systems 2 Review of Systems: Constitutional: No fever, chills, fatigue, night sweats, weight changes ENT/Mouth: No ear pain, hearing loss, nasal congestion, sinus pain, rhinorrhea, sore throat Eyes: No eye pain, swelling, redness, vision changes, discharge Cardio: No chest pain, palpitations, MORRIS, orthopnea, peripheral edema Pulm: No SOB, cough, sputum, wheezing, dyspnea, hemoptysis GI: No nausea, vomiting, hematemesis, abdominal pain, diarrhea, constipation, hematochezia, melena : No irregular bleeding, dysuria, frequency, urgency, hesitancy, hematuria, flank pain, urinary flow changes, urinary incontinence or retention MSK: No back pain, neck pain, joint pain, myalgias Skin: No lesions, rashes, +erythema to RLE Neuro: No weakness, numbness, paresthesias, LOC, dizziness, headache All other systems reviewed and are negative. [facility] Past Medical History Attestation statement: The following information was validated with the patient. Source: old records reviewed and nursing notes reviewed Medical History HTN (hypertension) Social History Social History Household Members: Family Housing: Apartment Do you presently have visiting nurse or other home services: No Alcohol intake: never Comment: [facility] OVERFLOW TO ICU Second Hand Smoke Exposure: No service: No Current occupational status: employed Physical Exam 2 Vital Signs: Vital Signs: Last Vital Signs Temp 97.7 F 06/07/23 09:17 Pulse 48 L 06/07/23 08:09 Resp 18 06/07/23 09:17 BP 122/72 06/07/23 08:09 Pulse Ox 97 06/07/23 08:09 O2 Del Method Room Air 06/07/23 08:09 BMI result Body Mass Index 29.5 Vital signs stable, afebrile. Const: General: cooperative, healthy appearing, comfortable, no acute distress, alert and awake Orientation/consciousness: patient oriented x3 L imitations: no limitations HEENT: Head: Yes normal to inspection Ears: hearing grossly normal bilaterally Eyes: General: appearance normal, both eyes and all related structures C onjunctivae: conjunctivae normal Sclerae: sclerae normal Pupils: Equal, round and reactive pupils present Neck: Neck: Yes normal visual inspection, Yes full ROM and Yes no lymphadenopathy Chest: Chest palpation & inspection: normal inspection of the chest Resp: Effort & Inspection: normal respiratory effort Auscultation: clear to auscultation bilaterally Cardio: Other: + 2+ dp/pt pulses b/l Rate: regular rate Rhythm: regular rhythm Back/Spine/Pelvis: Other: No midline spinous tenderness. No paraspinal muscle tenderness. No step off deformity. Skin: Other: + refer to photos below + right lower extremity with circumferen tial erythema noted just inferior to the calf extending to the right ankle. Mildly tender to palpation diffusely. Warm to the touch. No pitting edema. No palpable fluctuance. 2+ PT/DP pulses present. General skin exam: no rashes or lesions noted Neuro: General: patient oriented x3, gait normal and moves all extremities Cranial nerves: Yes Equal, round and reactive pupils present Extrem: Other: + referred photos above. + full ROM intact to right ankle and rig ht knee. ROM does not elicit pain. Negative Homans sign. Ambulating with steady gait General: Yes full ROM and Yes normal exam except as noted Course Course Course Narrative: 1040-- x-ray right tib/fib does not demonstrate acute fracture. There is soft tissue swelling and subcutaneous edema in the right lower leg and ankle consistent with cellulitis. There is no evidence of osteomyelitis or subcutaneous gas to suggest gangrene. Ultrasound of right lower extremity does not demonstrate clot > no concern for DVT at this time. Patient's symptoms/presentation are most consistent with superficial cellulitis. Discussed results with patient. Will send Keflex to her pharmacy for her to take the next 10 days for cellulitis. The area of redness has been marked with skin pen. Patient advised to return to the ED if the redness travels outside the lines over the next couple of days despite treatment with antibiotics. Patient has remained stable throughout ED visit today. Discussed strict return precautions. All questions answered at this time. Patient is agreeable with disposition and stable for discharge. Medical Decision Making Medical Decision Making [facility] Narrative: 72 year old female with pmhx significant for RLE cellulitis and HTN presents to the ED with redness/ pain/ warmth to her right lower leg x1 day. Vital signs stable, afebrile. She is nontoxic appearing and in no acute distress. Lying comfortably on exam bed. On examination, right lower extremity with circumferential erythema noted just inferior to the calf extending to the right ankle. Mildly tender to palpation diffusely. Warm to the touch. No pitting edema. No palpable fluctuance. 2+ PT/DP pulses present.full ROM intact to right ankle and right knee. ROM does not elicit pain. Negative Homans sign. Ambulating with steady gait. PERC score of 1. Will obtain US. Clinical concern for cellulitis, erysipelas, DVT, fracture. Unlikely osteomyelitis, compartment syndrome, threat to limb, neurovascular compromise, arterial occlusion. Plan for x-ray, ultrasound, re-evaluation. Differential Diagnosis Differential Diagnoses: The differential diagnosis associated with the presentation includes As above. Admission/Observation In this patient with recurring cellulitis, admission was considered. Independent Interpretation I performed an independent interpretation of an: Plain X-Ray and Ultrasound Interpretation: X-ray right tib/fib without subcutaneous gas, agree with radiologist's interpretation. Ultrasound of right lower extremity without clot, agree with radiologist's interpretation. Radiology Impression Discussion of test interpretation with radiology: I have reviewed the radiologist's reading. Radiologist Impression: US venous duplex LE RT IMPRESSION: No evidence of deep venous thrombosis involving the right lower extremity. XR tibia fibula RT 2V IMPRESSION: Soft tissue swelling and subcutaneous edema in the right lower leg and ankle. No acute osseous findings. No evidence of osteomyelitis or subcutaneous gas. External Record Review External record reviewed: Inpatient record, Office record, Outpatient record, Prior outpatient labs, Prior outpatient radiology, Primary care record and Outside ED record Prescription Management I considered prescription management with: Antibiotic Chronic Conditions Patient?s care impacted by: Hypertension and Other (cellulitis) Critical Care Time Critical Care Time Critical Care Time: No Discharge Plan Discharge Clinical Impression: Cellulitis of leg, right Patient Disposition: Home, Self-Care Instructions: Cellulitis (ED) Additional Instructions: The x-ray of your right leg was normal. The ultrasound of your right leg did not demonstrate clot. You likely have cellulitis, a skin infection, of the right lower leg. This requires antibiotic therapy. Cephalexin (keflex) is an antibiotic that has been sent to your pharmacy. You will take this 4 times a day for the next 10 days to treat cellulitis. Do not miss any doses or stop taking this early as this may cause infection to worsen or return. The redness along her lower leg was marked with a marker today. If the redness began spreading outside the lines despite treatment with antibiotics please return to the emergency department. If symptoms persist or worsen please return to the emergency department. In case of an emergency call 911. Prescriptions: New cephalexin 500 mg capsule 500 mg PO QID 10 Days Qty: 40 0RF No Action amlodipine 5 mg tablet 1 tab PO DAILY lisinopril 5 mg tablet 1 tab PO DAILY hydrochlorothiazide 12.5 mg tablet 1 tab PO DAILY dexamethasone 6 mg tablet 6 mg PO DAILY Qty: 5 0RF (DME) Pulse oximeter See Rx Instructions .Route .MEDSUPPLY Qty: 1 0RF Rx Instructions: As directed cephalexin 500 mg capsule 500 mg PO QID 10 Days Qty: 40 0RF Referrals: Arthur Peter MD [Primary Care Provider] - Stand Alone Forms: Work/School Release
[2023-06-07 09:17] VITALS: RESP 18; TEMP 36.5
== END 2023-06-07 11:06 | disposition home or self-care (01) ==
PROVIDERS: Emergency Provider Emergency Medicine; PCP Internal Medicine
DX: L03.115 Cellulitis of right lower limb (principal); M79.661 Pain in right lower leg; I10 Essential (primary) hypertension
CPT/HCPCS: 73590; 73600; 93971; 99284

== ENCOUNTER 2024-05-26 15:00 | Outpatient (REF) | payer OTHER, MEDICARE, SELFPAY ==
--- NOTE | ~2024-05-26 | MM_ITS ---
EXAMINATION: MM SCREENING DIGITAL BREAST TOMOSYNTHESIS, BILATERAL CLINICAL INFORMATION: Screening. Asymptomatic. COMPARISON: Mammography: Comparison is made with available priors TECHNIQUE: Digital breast mammography with tomosynthesis is performed in both the craniocaudal and mediolateral oblique views along with computer-aided detection (CAD). FINDINGS: There are scattered areas of fibroglandular density (ACR BI-RADS breast composition Category b). There are no significant masses, abnormal calcifications, or other abnormalities. MM/MM tomosynthesis screening BI IMPRESSION: No mammographic evidence of malignancy. ASSESSMENT: BI-RADS BI-RADS 1 - Negative RECOMMENDATION: Routine annual mammography screening. 1 year F/U This examination should not preclude the clinical evaluation of a suspicious palpable abnormality. This patient's information was entered into a reminder system with a target due date for their next mammogram. Electronically signed by: Jill Lugo DO 06/01/2024 03:32 PM [facility]A
== END 2024-05-26 15:01 | disposition home or self-care (01) ==
LOC: HO.MAMMO 15:00
PROVIDERS: PCP Internal Medicine; Visit Provider Internal Medicine
DX: Z12.31 Encounter for screening mammogram for malignant neoplasm of breast (principal)
CPT/HCPCS: 77063; 77067

== ENCOUNTER → 2024-05-26 15:15 | Outpatient (BNV) | payer OTHER, MEDICARE, SELFPAY | PROVIDERS: PCP Internal Medicine; Visit Provider Internal Medicine | DX: Z12.31 Encounter for screening mammogram for malignant neoplasm of breast (principal) | CPT/HCPCS: 77063; 77067 ==

== ENCOUNTER → 2024-06-21 13:18 | Outpatient (BNVA) | payer OTHER, SELFPAY | PROVIDERS: PCP Internal Medicine | DX: Z13.89 Encounter for screening for other disorder (principal) | CPT/HCPCS: 86481; 99211 ==

== ENCOUNTER 2024-08-26 09:55 | Outpatient (AMB) | payer OTHER, SELFPAY ==
--- NOTE | 2024-08-26 10:12 | MHC.OFFWIV ---
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
--- NOTE | 2024-08-26 10:12 | MHC.OFFWIV ---
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 States that cough is dry, and she has been getting into coughing fits , and her sides/ribs are sore from this. She has been using Mucinex at home with minimal relief. She has also been using a humidifier and increasing fluid intake. Denies any other flu like symptoms. Denies any fever / chills. Denies any GI symptoms. [facility] Medical History HTN (hypertension) Social History Household Members: Family Housing: Apartment Do you presently have visiting nurse or other home services: No Alcohol intake: never Comment: [facility] OVERFLOW TO ICU Second Hand Smoke Exposure: No service: No Current occupational status: employed Review of Systems Const All systems reviewed & are unremarkable except as noted in HPI and below Physical Exam Vital Signs: Last Vital Signs Temp 98 F 08/26/24 10:14 Pulse 66 08/26/24 10:14 BP 128/80 08/26/24 10:14 Pulse Ox 95 08/26/24 10:14 Oxygen Delivery Method Room Air 08/26/24 10:14 BMI result Body Mass Index 30.6 Const General: cooperative and healthy appearing HEENT Head: Yes normal to inspection Ears: hearing grossly normal bilaterally General nose exam: Normal external nose present Face and sinus: Yes normal facial exam Mouth: Normal oral and palatal mucosa present Neck Neck: Yes no lymphadenopathy Resp Effort & Inspection: normal respiratory effort and Actively coughing (dry) Quality: actively coughing Auscultation: clear to auscultation bilaterally (otherwise clear) and rhonchi upper bilaterally Cardio Rate: regular rate Rhythm: regular rhythm Skin General skin exam: no rashes or lesions noted Extrem General: Yes capillary refill normal and Yes no clubbing, cyanosis or edema Psych Appearance: grossly normal Mental Status: mental status grossly normal Speech and movement: Normal speech and movement present Assessment & Plan Assessment & Plan (1) Acute bronchitis: Code(s): J20.9 - Acute bronchitis, unspecified Qualifiers: Bronchitis organism: unspecified organism Qualified Code(s): J20.9 - Acute bronchitis, unspecified Plan: I am going to start patient on a short course of prednisone, as well as azithromycin. We reviewed indications, use, possible side effects of these medications. Encouraged her to continue to increase p.o. fluids and utilize humidifier at home. She can also continue to use Mucinex as needed for symptom management. If she develops any shortness of breath, fever, or symptoms do not improve with time/treatment, she can certainly return to the clinic for further evaluation, or to the emergency department. She verbalizes understanding and agrees to plan. Medications: New prednisone Take 1 tablet daily for 5 days 20 mg PO DAILY 5 days 5 tabs 0RF J20.9 - Acute bronchitis, unspecified azithromycin For 250 mg dose pack: take 500 mg today (day 1), then 250 mg for 4 days (days 2-5) PO 6 tabs 0RF J20.9 - Acute bronchitis, unspecified Coding Level of Care Code Est Pt Level 4 (26943) Diagnoses Acute bronchitis, unspecified organism J20.9 Bronchitis organism: unspecified organism
[2024-08-26 10:14] VITALS: BP 128/80; PULSE 66; TEMP 36.6; O2SAT 95; BMI 30.6
== END 2024-08-26 11:13 | disposition home or self-care (01) ==
PROVIDERS: PCP Internal Medicine; Visit Provider Nurse Practitioner Family
DX: J20.9 Acute bronchitis, unspecified (principal)

== ENCOUNTER 2025-04-07 13:50 | Outpatient (AMB) | payer OTHER, SELFPAY ==
[2025-04-07 14:23] VITALS: BP 110/78; PULSE 62; TEMP 36.7; O2SAT 100; BMI 29.5
--- NOTE | 2025-04-07 14:23 | MHC.OFFWIV ---
Intake Vital Signs 04/07/25 14:23 Height 5 ft 9 in Weight 200 lb BMI 29.5 BP 110/78 Blood Pressure Location Lt brachial Position Sitting Pulse 62 Pulse Source Pulse Oximeter Temp 98.1 F Temp Source Oral Pulse Oximetry (%) 100 Oxygen Delivery Method Room Air Intake Visit Reasons: EP Abdominal pain Intake Note: pt presents with LLQ pain with loose stools with blood, fevers on/off, body weakness on/off, appetite decreased for 3 days Allergies No Known Allergies Allergy (Verified 04/07/25 14:26) Do you need a note to return to daycare/school/sports/work: No HPI HPI Comments History of Present Illness Details This is a 74-year-old female with past medical history significant for essential hypertension who presented to the walk-in clinic complaining of left lower quadrant abdominal pain and diarrhea x3 days. Patient states she ate corn 4 days ago and then started to develop left lower quadrant abdominal pain as well as bloody diarrhea the following day. She states she had bright red blood per rectum and had episodes of watery diarrhea almost every 30 minutes that day. She states she has had fewer episodes of diarrhea over the past 2 days and she is no longer having bright red blood per rectum; however, she continues to have loose and watery stools as well as left lower quadrant abdominal pain. Additionally, she has been having subjective fevers and chills although has not taken her temperature. She denies any nausea or vomiting. She has been able to tolerate oral intake and has been eating a bland diet consisting of toast, oatmeal, tea, kalyan naveen, and water. She denies any known history of diverticulitis and states her last colonoscopy was prior to [facility] and was normal as far she is aware. She denies any recent travel, recent medication changes, or recent antibiotic use and she denies any positive sick contacts. [facility], [facility] Medical History HTN (hypertension) Social History Household Members: Family Housing: Apartment Do you presently have visiting nurse or other home services: No Alcohol intake: never Comment: [facility] OVERFLOW TO ICU Second Hand Smoke Exposure: No service: No Current occupational status: employed Review of Systems Const All systems reviewed & are unremarkable except as noted in HPI and below Reports no additional complaints Eyes Reports no additional complaints ENT Reports no additional complaints Card Reports no additional complaints Resp Reports no additional complaints GI Reports no additional complaints Reports no additional complaints Musc Reports no additional complaints Skin/Breast Reports system reviewed and no additional complaints, except as documented Neuro Reports no additional complaints Psych Reports no additional complaints Endo Reports no additional complaints Shantanu/Lymph Reports no additional complaints Aller/Immun Reports no additional complaints Physical Exam Exam Exam: Vital signs reviewed. Constitutional: Non-toxic appearing. No acute distress. Well-developed and well-nourished. HEENT: Normocephalic and atraumatic. Skin: Warm and dry. No rashes or lesions noted. Neck: Full and painless range of motion. No cervical lymphadenopathy. Cardio: Regular rate and rhythm. No murmurs, gallops, or rubs. No lower extremity edema. No JVD. Pulmonary: No respiratory distress. No accessory muscle usage. Clear to auscultation bilaterally without wheezing, crackles, or rhonchi. Gastrointestinal: Hyperactive bowel sounds throughout. She has [id number] tenderness to palpation of the left lower quadrant without any tenderness to palpation of the right upper or right lower quadrant or epigastric tenderness to palpation. No rebound tenderness to palpation. Her abdomen is soft and non-distended. Musculoskeletal: Normal range of motion in joints throughout the body. No deformity or other signs of injury. Neuro: Alert and oriented x4. Cranial nerves 2-12 grossly intact. No focal deficits appreciated. Psych: Normal mood and affect. Vital Signs: Last Vital Signs Temp 98.1 F 04/07/25 14:23 Pulse 62 04/07/25 14:23 BP 110/78 04/07/25 14:23 Pulse Ox 100 04/07/25 14:23 Oxygen Delivery Method Room Air 04/07/25 14:23 BMI result Body Mass Index 29.5 Assessment & Plan Assessment & Plan (1) Acute diverticulitis: Code(s): K57.92 - Diverticulitis of intestine, part unspecified, without perforation or abscess without bleeding Plan This is a 74-year-old female with past medical history significant for essential hypertension who presented to the walk-in clinic complaining of left lower quadrant abdominal pain and diarrhea x3 days. On physical examination, she has mild to moderate left lower quadrant tenderness to palpation with hyperactive bowel sounds. She does not appear to have acute abdomen or peritoneal signs at this time. Her history and physical are most consistent with an acute uncomplicated diverticulitis; however, patient was made aware that I am unable to definitively rule out complicated diverticulitis with abscess or perforation although I do consider this less likely at this time. Regardless, patient would like to avoid the emergency room as much as possible. Given that patient is afebrile and does not appear to have any peritoneal signs, patient agrees to trial outpatient treatment but will have a low threshold to proceed to the emergency room. Patient was prescribed PO amoxicillin/clavulanate 875/125 mg twice daily x7 days for treatment of acute diverticulitis and recommended symptomatic management including a liquid diet, increased fluids/hydration with electrolytes, and pain management with acetaminophen/ibuprofen. Patient also informed to follow-up with her PCP next week for re-assessment and re-evaluation and patient will call her PCP to make an appointment as soon as possible. Patient was instructed to proceed directly to the emergency room immediately if she were to develop worsening pain, recurrent fevers, recurrent hematochezia, or inability to tolerate oral intake and patient informed to have a low threshold to proceed to the emergency room as uncomplicated diverticulitis can lead to complications such as perforation, abscess, and sepsis. Patient verbalized understanding and is agreeable with the plan. Medications: New amoxicillin-pot clavulanate 875-125 mg 1 tab PO BID 14 tabs 0RF Coding Level of Care Code Est Pt Level 3 (83100) Diagnoses Acute diverticulitis K57.92
== END 2025-04-07 15:17 | disposition home or self-care (01) ==
PROVIDERS: PCP Internal Medicine; Visit Provider Physician Assistant Medical
DX: K57.92 Diverticulitis of intestine, part unspecified, without perforation or abscess without bleeding (principal)

== ENCOUNTER 2025-06-07 07:37 | Outpatient (REF) | payer OTHER, SELFPAY | END 2025-06-07 07:38 | disposition home or self-care (01) | LOC: HO.MAMMO 07:37 | PROVIDERS: PCP Internal Medicine; Visit Provider Internal Medicine | DX: Z12.31 Encounter for screening mammogram for malignant neoplasm of breast (principal) | CPT/HCPCS: 77063; 77067 ==

== ENCOUNTER → 2025-06-07 07:45 | Outpatient (BNV) | payer OTHER, SELFPAY | PROVIDERS: PCP Internal Medicine; Visit Provider Radiology Body Imaging | DX: Z12.31 Encounter for screening mammogram for malignant neoplasm of breast (principal) | CPT/HCPCS: 77063; 77067 ==

== ENCOUNTER 2025-06-08 16:03 | Emergency (ER) | payer OTHER, SELFPAY ==
--- NOTE | ~2025-06-08 | XR_ITS ---
CLINICAL HISTORY: pain 3 views left hand Comparison: Same day wrist radiographs Findings: Distal radial fracture is re-identified. No other fracture or dislocation.. There are mild degenerative changes of the 1st carpometacarpal articulation. No erosions. No radiopaque foreign body. Impression: 1. Distal radial fracture. No other fracture or dislocation. This document has been electronically signed by: Denny Hugo MD on 06/08/2025 17:38:49
--- NOTE | ~2025-06-08 | XR_ITS ---
CLINICAL HISTORY: pain 3 views left wrist Comparison: None Findings: There is a fracture of the distal radial metaphysis, not significantly displaced. No other fractures or traumatic malalignment.. No significant arthritic change. No radiopaque foreign body. Impression: 1. Distal radial fracture as described above. This document has been electronically signed by: Denny Hugo MD on 06/08/2025 17:40:07
[2025-06-08 16:30] VITALS: BP 197/82; PULSE 53; RESP 16; O2SAT 96; BMI 30.1
--- NOTE | 2025-06-08 16:31 | ED.UPPEXIN ---
HPI - Extremity Injury (Upper) General Chief Complaint: Extremity Injury, Upper Stated Complaint: left wrist injury Time Seen by Provider: 06/08/25 17:24 Source: patient Mode of arrival: ambulatory Limitations: no limitations History of Present Illness ED Provider: DR. Cross HPI narrative: 74-year-old female who also [employer] employee right hand dominant came in for evaluation after a fall with left wrist pain. Patient was playing with her dog when she lost balance and fell backward and outstretched left wrist causing severe pain in the left wrist. No head injury, no chest injury, no abdominal injury, no other injuries. Related Data Home Medications ?Medication ?Instructions ?Recorded ?Confirmed amlodipine 5 mg tablet 1 tab PO DAILY 05/23/20 05/23/20 lisinopril 5 mg tablet 1 tab PO DAILY 05/23/20 05/23/20 Previous Rx's ?Medication ?Instructions ?Recorded Pulse oximeter #1 ea 05/29/20 amoxicillin 875 mg-potassium 1 tab PO BID #14 tabs 04/07/25 clavulanate 125 mg tablet Allergies Allergy/AdvReac Type Severity Reaction Status Date / Time No Known Allergies Allergy Verified 06/08/25 16:34 Review of Systems Review of Systems: All other systems are reviewed and are negative Constitutional: Reports as per HPI and Reports no additional constitutional complaints Eyes: Reports as per HPI and Reports no additional eye complaints Reports system reviewed and no additional complaints, except as documented Cardiovascular: Reports as per HPI and Reports no additional cardiovascular complaints Respiratory: Reports as per HPI and Reports no additional respiratory complaints Gastrointestinal: Reports as per HPI and Reports no additional gastrointestinal complaints Genitourinary: Reports no additional female genitourinary complaints Musculoskeletal: Reports no additional musculoskeletal complaints Skin/Breast: Reports system reviewed and no additional complaints, except as docu Psychiatric: Reports no additional psychiatric complaints Endocrine: Reports no additional endocrine complaints Hematologic/Lymphatic: Reports no additional hematologic/lymphatic complaints Allergic/Immunologic: Reports no additional allergic/immunologic complaints Reports system reviewed and no additional complaints, except as documented and Reports Abnormal speech present [facility] Past Medical History Medical History HTN (hypertension) Social History Social History Household Members: Family Housing: Apartment Do you presently have visiting nurse or other home services: No Alcohol intake: never Comment: [facility] OVERFLOW TO ICU Second Hand Smoke Exposure: No Advance Directives: Yes Advance Directives Information Provided: Yes Advance Directives on File: No service: No Current occupational status: employed Physical Exam Vital Signs: Vital Signs: Last Vital Signs Pulse 53 06/08/25 16:30 Resp 16 06/08/25 16:30 BP 197/82 H 06/08/25 16:30 Pulse Ox 96 06/08/25 16:30 O2 Del Method Room Air 06/08/25 16:30 BMI result Body Mass Index 30.1 Vital signs have been reviewed and appear to be correct. Blood pressure elevated. Heart rate normal. Respiratory rate normal. Temperature normal. Oxygen saturation normal. Appearance: Alert. Oriented X3. No acute distress. Head: Normal external exam. Normocephalic. Atraumatic. No Perez signs noted. No raccoon eyes noted Eyes: PERRLA. EOMI. Conjunctiva and sclera normal. Eyelids normal. ENT: TM's Normal. Pharynx normal. Uvula midline. Moist mucous membranes. No trismus noted. No drooling noted. No muffled voice noted. Neck: Normal inspection. Neck supple. FROM. No adenopathy. Thyroid Normal. No meningeal signs. No neck mass noted. CVS: Normal heart rate and rhythm. Heart sound normal. No murmurs noted. Pulses normal throughout. Respiratory: No respiratory distress. Painless inspiration. Breath sounds normal. No wheezes/rales/rhonchi noted. Chest nontender. No accessory muscle usage noted or decreased air movement noted. Abdomen: Soft and nontender. Bowel sounds normal in all 4 quadrants. No distention noted. No organomegaly noted. No visible injury noted. Back: No CVA tenderness. Full range of motion noted. Skin: Skin warm and dry. Normal skin color. Normal skin turgor. No rashes/lesions/lacerations noted. Extremities: Left upper extremity: Left hand/left wrist neurovascularly intact with a strong left radial pulsation, cap refill is less than 2 seconds, tenderness over the distal radial aspect of the left wrist with no obvious deformity. Neuro: Oriented X 3. Cranial nerve exam: II-XII are grossly intact No motor deficit. No sensory deficit. Reflexes normal. Course Course Course Narrative: This is an RME: Additional HPI, ROS, PE not included below will be deferred to primary provider. 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 No head strike or LOC. Plan: xrays, pt medicated with tylenol Reevaluation(s) Reevaluation #1: Left distal radius fracture. Thumb spica splint. With ortho follow-up. NSAIDs if needed for pain, Time: 17:56 Medications Administered Discontinued Medications Generic Name Dose Route Start Last Admin Trade Name Freq PRN Reason Stop Dose Admin Acetaminophen 975 mg 06/08/25 16:34 06/08/25 16:36 Acetaminophen 325 Mg Tablet PO 06/08/25 16:35 975 mg ONCE ONE Administration Medical Decision Making Differential Diagnosis Differential Diagnoses: The differential diagnosis associated with the presentation includes (Head injury, chest injury, abdominal injury, back injury, extremity injuries, neck injuries.) Admission/Observation Consideration of admission/observation: Escalation of care including admission/observation considered Independent Interpretation I performed an independent interpretation of an: Plain X-Ray (Left hand/left wrist: Distal radial fracture.) Radiology Impression Discussion of test interpretation with radiology: I have reviewed the radiologist's reading. Procedures Orthopedic Splinting/Casting Injury #1: Side: left Upper Extremity Injury Location: wrist Upper Extremity Immobilizer: thumb spica Discharge Plan Discharge Clinical Impression: Closed fracture of left wrist Patient Disposition: Home, Self-Care Instructions: Wrist Fracture in Adults (ED), Splint Care (ED) Additional Instructions: Take [id number]-[id number] ibuprofen 200 mg tablet every 6 hours if needed for pain or alternate with Tylenol 500 mg tablet every 6 hours if needed for pain. Prescriptions: No Action amlodipine 5 mg tablet 1 tab PO DAILY lisinopril 5 mg tablet 1 tab PO DAILY (DME) Pulse oximeter See Rx Instructions .Route .MEDSUPPLY Qty: 1 0RF Rx Instructions: As directed amoxicillin-pot clavulanate 875-125 mg tablet 1 tab PO BID Qty: 14 0RF Referrals: Te Go MD [Physician, Orthopedics] Arthur Peter MD [Primary Care Provider, Internal Medicine] Stand Alone Forms: Work/School Release Print Language: Latvian
[2025-06-08 18:12] VITALS: BP 149/71; PULSE 50; RESP 16; TEMP 36.7; O2SAT 98
[2025-06-08 18:13] VITALS: BP 149/71; PULSE 50; RESP 16; TEMP 36.7; O2SAT 98
== END 2025-06-08 18:13 | disposition home or self-care (01) ==
PROVIDERS: Emergency Provider Emergency Medicine; PCP Internal Medicine
DX: S52.592A Other fractures of lower end of left radius, initial encounter for closed fracture (principal); W01.0XXA Fall on same level from slipping, tripping and stumbling without subsequent striking against object, initial encounter; Y93.89 Activity, other specified; Y92.019 Unspecified place in single-family (private) house as the place of occurrence of the external cause; Y99.9 Unspecified external cause status
CPT/HCPCS: 29125; 73110; 73130; 99283

== ENCOUNTER → 2025-06-08 16:35 | Outpatient (BNV) | payer OTHER, SELFPAY | PROVIDERS: Emergency Provider Emergency Medicine; PCP Internal Medicine; Visit Provider Radiology Diagnostic Radiology | DX: S52.502A Unspecified fracture of the lower end of left radius, initial encounter for closed fracture (principal) | CPT/HCPCS: 73110; 73130 ==

== ENCOUNTER 2025-06-12 08:23 | Outpatient (AMB) | payer OTHER, SELFPAY ==
--- NOTE | 2025-06-12 08:37 | MHC.OFFVIS ---
Intake Visit Reasons: ED f/u Closed fracture of left wrist Intake Note: Caity is a 74 year old right hand dominant female, new patient, who presents today for an ED Follow up status post Left Distal Radius Fracture, DOI: 06/08/25. Patient presented to [facility] [place] [facility] ED reporting she was playing with her dog when she lost balance and fell backward and outstretched left wrist. Today, complains of pain on the ulnar aspect of the wrist, triggered by certain movements. She also complains of pain on her left shoulder. She is taking Motrin with relief. She denies numbness or tingling. Reports previous left wrist fracture about 5 years ago, while at work, non-surgical. Allergies No Known Allergies Allergy (Verified 06/12/25 08:44) HPI HPI ED f/u Closed fracture of left wrist: Details: Caity is a 74 year old right hand dominant female, new patient, who presents today for an ED Follow up status post Left Distal Radius Fracture, DOI: 06/08/25. Patient presented to [facility] [place] ED reporting she was playing with her dog when she lost balance and fell backward and outstretched left wrist. Today, complains of pain on the radial aspect of the wrist, triggered by certain movements. She also complains of pain on her left shoulder. She is taking Motrin with relief. The patient does report some swelling in her left hand and digits, reports that this has improved since evaluation in the emergency department. Denies numbness or tingling in the left hand. No other acute complaints or concerns at this time. [facility] Medical History HTN (hypertension) Social History Household Members: Family Housing: Apartment Do you presently have visiting nurse or other home services: No Alcohol intake: never Comment: [facility] OVERFLOW TO ICU Second Hand Smoke Exposure: No service: No Current occupational status: employed Review of Systems Const All systems reviewed & are unremarkable except as noted in HPI and below Physical Exam Extrem Other: Patient is alert, oriented, and in no acute distress. Neuro: Normal sensation of the tips of all digits of the left hand at this time Vascular: Cap refill brisk Pain: Tenderness to palpation about left distal radius No tenderness to anatomical snuffbox of the left wrist No tenderness to palpation of the left distal ulna Minimal discomfort with range of motion of the left hand ROM: Patient is able to make a closed fist and extend all digits of the left hand fully Skin: No lacerations or abrasions. General: Kcry-ko-byqnsfre edema noted over the distal radius, worst on the dorsal aspect, as well as over the dorsal MCP joints in the digits of the left hand No ecchymosis, erythema, or evidence of infection. Psych: Appears grossly normal Affect normal Attitude cooperative Office Procedures AMB Fracture Care Fracture Billing Code: Fracture Billing Code Casting/Splints 99356-[id number] Splint Application Procedure code (CPT) selection complete Results Reviewed Results Reviewed: X-rays obtained in the office today and independently reviewed by me, Jared Gilmore PA-C, demonstrate nondisplaced left distal radius fracture. Assessment & Plan Assessment & Plan (1) Distal radius fracture, left: Code(s): S52.502A - Unspecified fracture of the lower end of left radius, initial encounter for closed fracture Category: Medical Plan 1. Nondisplaced left distal radius fracture Date of injury 06/08/2025 Patient is educated about this injury Patient is educated about the typical recovery course At this time, patient is placed into a volar short-arm wrist splint Patient is educated on proper splint care and precautions 2 lb weight limit in left hand Patient should be out of work until follow-up evaluation Patient understands this and is amenable to this plan Follow-up in 10-14 days for reassessment, anticipate cast placement at that time, sooner with any acute concerns Orders: Orders XR wrist LT min 3V Today M25.532 - Pain in left wrist Coding Level of Care Code New Pt Level 3 (68337) Diagnoses Distal radius fracture, left S52.502A CPT Codes Fracture Care - Fracture Billing Code: Fracture Billing Code ([id number]) Splint - CPT: 39533-Pgdxyeb Splint Application ([id number])
== END 2025-06-12 09:36 | disposition home or self-care (01) ==
LOC: HO.HOS 08:24
PROVIDERS: PCP Internal Medicine
DX: S52.502A Unspecified fracture of the lower end of left radius, initial encounter for closed fracture (principal)
CPT/HCPCS: 25600; 99203

== ENCOUNTER 2025-06-12 08:23 | Outpatient (REF) | payer OTHER, SELFPAY ==
--- NOTE | ~2025-06-12 | XR_ITS ---
EXAMINATION: XR WRIST 3 OR MORE VIEWS LEFT HISTORY: M25.532 - Pain in left wrist COMPARISON: Comparison is made with the prior examination dated 06/08/2025. FINDINGS: Three views of the left wrist are submitted. Osseous mineralization is normal. Again seen is a nondisplaced transverse fracture of the distal radial metaphysis. The fracture line remains visible. The joint spaces are preserved. The soft tissues are unremarkable. XR/XR wrist LT min 3V IMPRESSION: Nondisplaced transverse fracture of the distal radius without change. Electronically signed by: Quinton Goodson MD 06/12/2025 09:26 AM [facility]
== END 2025-06-12 08:24 | disposition home or self-care (01) ==
LOC: HO.HOSX 08:23
PROVIDERS: PCP Internal Medicine
DX: S52.502A Unspecified fracture of the lower end of left radius, initial encounter for closed fracture (principal); W18.30XA Fall on same level, unspecified, initial encounter; Y93.89 Activity, other specified; Y92.9 Unspecified place or not applicable; Y99.9 Unspecified external cause status
CPT/HCPCS: 25600; 73110

== ENCOUNTER → 2025-06-12 08:27 | Outpatient (BNV) | payer OTHER, SELFPAY | PROVIDERS: PCP Internal Medicine; Visit Provider Radiology Diagnostic Radiology | DX: S52.592D Other fractures of lower end of left radius, subsequent encounter for closed fracture with routine healing (principal) | CPT/HCPCS: 73110 ==